=== PATIENT | female | born 1995 | race African-American/Black ===

== ENCOUNTER 2016-04-26 13:09 | Emergency (ER) | payer SELFPAY ==
[~2016-04-26] VITALS: Ht 160 cm; Wt 54.6 kg
[2016-04-26 13:13] VITALS: BP 114/76; PULSE 100; RESP 18; TEMP 98.7; O2SAT 99
[2016-04-26] MEDS ORDERED: MAGICPED SWISH-SPIT (13:31)
[2016-04-26] MEDS ORDERED: DICL75TA PO (13:31)
--- NOTE | 2016-04-26 13:36 | PD ---
HPI Chief Complaint: Oral / Dental Pain or Problem Time Seen by Provider: 13:31 Travel History International Travel<30 days: No Contact w/Intl Traveler<30days: No Traveled to known affect area: No History of Present Illness HPI Patient is a 20-year-old female presenting with chief complaint of dental pain. Present for 3 days. Denies any trauma or injury. She states that is a tooth on the bottom left. Has had problems with this tooth before. Pain is aching and throbbing does not radiate. She denies any masses or swelling. States occasion she has a bad taste in her mouth but denies any bleeding or chandan discharge. No neck masses or lymphadenopathy. No fevers. He's had a frontal headache as well she believes is related. Denies any vision changes, weakness, dizziness, nausea or vomiting. Over the 3 days she has used one ibuprofen 200 mg and some Tylenol and Orajel. No other attempts at palliation. Scheduled with a dentist but cannot get in until next week. Denies current . 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) Diminished Hearing: No Gastrointestinal Disorders: Yes (NAUSEA/VOMITING) Headaches: Yes Immunizations Current: Yes Migraines: Yes Tetanus Vaccination: > 5 Years Influenza Vaccination: No ?: Not LMP: 03-30-16 : 1 Para: 0 Miscarriage: 1 : 0 Past Surgical History Surgical History: No Previous Surgery Section: Yes (Breech position: 17 WEEKS PREMIE) Family History Family Hypercholesterolemia: Yes Social History Alcohol Use: Yes (rarely) Tobacco Use: No (never) Substance Use: No Allergies-Medications (Allergen,Severity, Reaction): Coded Allergies: No Known Allergies (Verified , 04/26/16) Reported Meds & Prescriptions Reported Meds & Active Scripts Active No Active Prescriptions or Reported Medications Review of Systems Except as stated in HPI: all other systems reviewed are Neg Physical Exam Narrative GENERAL: Well-developed and well-nourished adult female in no acute distress. SKIN: Warm and dry. Good turgor without tenting. HEAD: Normocephalic and atraumatic. EYES: PERRL bilaterally, 5mm. EOMI bilaterally. No injection or icterus present. No proptosis. Lids without edema or erythema. ENT: Tooth #19 has multiple fillings in it does appear to be some caries. Tooth is tender to percussion. No breakage. No discharge or bleeding. The gingiva is not erythematous, indurated or have any fluctuance. Tender to palpation of the gingiva on the buccal side. No buccal or sublingual masses. Buccal mucosa pink and moist. Oropharynx free of erythema, tonsillar hypertrophy , masses, swelling, asymmetry and exudates. Uvula midline and airway patent. NECK: Supple, no meningeal signs. No masses or induration palpated. Trachea midline, no JVD. No cervical or facial lymphadenopathy. CARDIOVASCULAR: Regular rate and rhythm without murmurs, rubs, clicks or gallops. RESPIRATORY: Clear to auscultation bilaterally with symmetrical rise and fall, no distress or use of accessory muscles. MUSCULOSKELETAL: No gait disturbances. Patient freely moving all four extremities spontaneously. Extremities without clubbing, cyanosis, or edema. No obvious deformities. NEUROLOGIC: CN II-XII grossly intact. Awake and alert. Motor grossly within normal limits. Normal speech. PSYCHIATRIC: Appropriate mood and affect; insight and judgment normal. Data Data Last Documented VS Vital Signs Date Time Temp Pulse Resp B/P Pulse Ox O2 Delivery O2 Flow Rate FiO2 04/26/16 13:20 16 04/26/16 13:13 98.7 100 114/76 99 MDM Medical Decision Making Medical Screen Exam Complete: Yes Emergency Medical Condition: Yes Differential Diagnosis Caries versus Periapical abscess versus cellulitis versus Tooth Fracture vs less likely Ludwigs Angina Narrative Course Patient is a 20-year-old female presenting with dental pain. By history and physical was is secondary to caries. No signs of infection. She is afebrile and nontoxic appearing. She also had a mild a frontal headache associated with it without "red flag symptoms. She has been on suboptimal anti-inflammatory therapy only taking one ibuprofen 200 mg over the last 3 days. Patient given prescription for diclofenac and Magic mouthwash and recommend follow-up with dentist prior to next week. I recommended local emergency dentists per handout.See discharge paperwork for further instructions. The plan was discussed with the patient who acknowledged their understanding and agreement. Reinforced the follow-up with primary care is critically important. Patient instructed on emergent conditions that should prompt return to ED. Diagnosis Primary Impression: Pain, dental Patient Instructions: Dental Caries (ED), General Instructions Departure Forms: Tests/Procedures, Work Release Enter return to work date: Apr 27, 2016 Additional Instructions: Take medication as directed Use salt water gargles, Orajel, or other OTC products for topical pain relief Apply ice packs hourly as needed to help with swelling and pain Schedule with dentist JANNY for definitive treatment Return to the ED for any acute worsening of symptoms Med/Other Pt SpecificInfo: Prescription(s) given Scripts Ftonkhcbzazklxv-Yjkiuhnkd-Zvz-Alum-Simeth Liq (Magic Mouthwash Pediatric/Adult Liq)60 Ml Susp5-10 Ml SWISH-SPIT ACHS PRN (SORE THROAT) #120 ML Please makes 40 mL each: 2% viscous lidocaine, liquid diphenhydramine and Maalox liquid Prov:Juliette Valenzuela MD 04/26/[address] 75 Mg Tabdr75 Mg PO BID #10 TAB Prov:Juliette Valenzuela MD 04/26/16 Disposition: 01 DISCHARGE HOME Condition: Stable Gómez Naranjo III Apr 26, 2016 13:36
== END 2016-04-26 13:56 | disposition home or self-care (01) ==
LOC: PHEFT 13:09
DX: K08.89 Other specified disorders of teeth and supporting structures (principal)
CPT/HCPCS: 99283

== ENCOUNTER 2016-05-15 15:40 | Emergency (ER) | payer MEDICAID ==
[~2016-05-15] VITALS: Ht 160 cm; Wt 52.0 kg
[~2016-05-15 15:40] MED LIST: DICL75TA PO; MAGICPED SWISH-SPIT
[2016-05-15 15:51] VITALS: BP 122/79; PULSE 97; RESP 16; TEMP 98.5; O2SAT 99
[2016-05-15] MEDS ORDERED: SODIUM CHLOR 0.9% 1000 ML INJ 1,000 ML IV ONE (16:07)
[2016-05-15] MEDS ORDERED: ONDANSETRON HCL 4 MG/2 ML VIAL IVP ONE (16:15)
[2016-05-15] MEDS ORDERED: SODIUM CHLORIDE 0.9% FLUSH 5 ML FLUSH IVF PRN (16:15)
[2016-05-15 16:39] VITALS: O2SAT 98
--- NOTE | 2016-05-15 16:41 | PD ---
HPI Chief Complaint: GI Complaint Time Seen by Provider: 16:07 Travel History International Travel<30 days: No Contact w/Intl Traveler<30days: No Traveled to known affect area: No History of Present Illness HPI 20-year-old female presents emergency department with complaint of nausea vomiting nursing to see. For the last week she has had nausea, vomiting. Associated lightheadedness, dizziness. Yesterday evening she had a near syncopal episode at work yesterday evening. Patient states that her last menstrual period was March 28, 2016. She is sexually active and is late for her menstrual period but has not taken any tests at home. Patient is unsure whether she could be . She has not had any abdominal pain, vaginal bleeding or abnormal vaginal discharge. Denies any history of heavy menstrual bleeding, anemia or arrhythmia and self or family. 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) Diminished Hearing: No Gastrointestinal Disorders: Yes (NAUSEA/VOMITING) Headaches: Yes Immunizations Current: Yes Migraines: Yes Tetanus Vaccination: Unknown Influenza Vaccination: No ?: Unknown LMP: LAST MONTH : 1 Para: 0 Miscarriage: 1 : 0 Past Surgical History Section: Yes (Breech position: 17 WEEKS PREMIE) Family History Family Hypercholesterolemia: Yes Social History Alcohol Use: No Tobacco Use: No (never) Substance Use: No Allergies-Medications (Allergen,Severity, Reaction): Coded Allergies: No Known Allergies (Verified , 05/15/16) Reported Meds & Prescriptions Reported Meds & Active Scripts Active Plus Iron 29-1 mg ( Vit-Iron Carbonyl) 1 Tab Tab 1 Tab PO DAILY Zofran Odt (Ondansetron Odt) 8 Mg Tab 8 Mg SL Q8H PRN Magic Mouthwash Pediatric/Adult Liq (Lidocaine/Diphenhydr/Alum/Mg/Simeth) 60 Ml Susp 5-10 Ml SWISH-SPIT ACHS PRN Please makes 40 mL each: 2% viscous lidocaine, liquid diphenhydramine and Maalox liquid Diclofenac Sodium DR (Diclofenac Sodium) 75 Mg Tabdr 75 Mg PO BID Review of Systems Except as stated in HPI: all other systems reviewed are Neg Physical Exam Narrative GENERAL: Well-appearing female in no acute distress SKIN: Warm and dry. HEAD: Normocephalic. EYES: No scleral icterus. No injection or drainage. ENT: Mucous membranes pink and moist. NECK: Supple CARDIOVASCULAR: Regular rate and rhythm. No murmur appreciated. RESPIRATORY: No accessory muscle use. Clear to auscultation. Breath sounds equal bilaterally. GASTROINTESTINAL: Abdomen soft, non-tender, nondistended. MUSCULOSKELETAL: Normal gait NEUROLOGICAL: Awake and alert. Normal speech. PSYCHIATRIC: Appropriate mood and affect; insight and judgment normal. Data Data Last Documented VS Vital Signs Date Time Temp Pulse Resp B/P Pulse Ox O2 Delivery O2 Flow Rate FiO2 05/15/16 16:39 98 05/15/16 15:51 98.5 97 16 122/79 Orders Electrocardiogram (05/15/16 16:07) Basic Metabolic Panel (Bmp) (05/15/16 16:07) Ed Urine Pregnancytest Poc (05/15/16 16:07) Complete Blood Count With Diff (05/15/16 16:07) Magnesium (Mg) (05/15/16 16:07) Ecg Monitoring (05/15/16 16:07) Iv Access Insert/Monitor (05/15/16 16:07) Oximetry (05/15/16 16:07) Ondansetron Inj (Zofran Inj) (05/15/16 16:15) Sodium Chloride 0.9% Flush (Ns Flush) (05/15/16 16:15) Sodium Chlor 0.9% 1000 Ml Inj (Ns 1000 M (05/15/16 16:07) Labs Laboratory Tests Test 05/15/16 16:26 White Blood Count 5.9 TH/MM3 Red Blood Count 4.42 MIL/MM3 Hemoglobin 11.8 GM/DL Hematocrit 36.0 % Mean Corpuscular Volume 81.5 FL Mean Corpuscular Hemoglobin 26.7 PG Mean Corpuscular Hemoglobin 32.8 % Concent Red Cell Distribution Width 13.8 % Platelet Count 315 TH/MM3 Mean Platelet Volume 8.5 FL Neutrophils (%) (Auto) 60.8 % Lymphocytes (%) (Auto) 26.2 % Monocytes (%) (Auto) 7.7 % Eosinophils (%) (Auto) 1.3 % Basophils (%) (Auto) 4.0 % Neutrophils # (Auto) 3.6 TH/MM3 Lymphocytes # (Auto) 1.5 TH/MM3 Monocytes # (Auto) 0.5 TH/MM3 Eosinophils # (Auto) 0.1 TH/MM3 Basophils # (Auto) 0.2 TH/MM3 CBC Comment DIFF FINAL Differential Comment Sodium Level 139 MEQ/L Potassium Level 3.6 MEQ/L Chloride Level 105 MEQ/L Carbon Dioxide Level 23.7 MEQ/L Anion Gap 10 MEQ/L Blood Urea Nitrogen 6 MG/DL Creatinine 0.52 MG/DL Estimat Glomerular Filtration 184 ML/MIN Rate Random Glucose 72 MG/DL Calcium Level 9.2 MG/DL Magnesium Level 1.9 MG/DL [facility] [place] Medical Decision Making Medical Screen Exam Complete: Yes Emergency Medical Condition: Yes Medical Record Reviewed: Yes Differential Diagnosis 20-year-old female here with complaint of one week of nausea, vomiting, lightheadedness and near syncopal episode. She is 2+ weeks overdue for her menses. Highly suspicious for . Differential includes symptomatic anemia, arrhythmia, electrolyte abnormality, and less likely ectopic given the benign abdominal examination lack of abdominal pain or vaginal bleeding. Narrative Course Patient placed on monitor, IV established and blood obtained. Twelve-lead EKG shows sinus rhythm without notable ST or T-wave abnormalities and normal intervals. Patient given 1 L normal saline bolus, 4 monos Zofran. Urine test was positive. Based on LMP of 03/28/16 patient is 6 weeks 6 days gestational age today. CBC, BMP, magnesium were obtained and unremarkable. Patient was reassured, given Zofran for home and encouraged to follow-up with OB /SENIOR FINANCIAL ACCOUNTANT to establish care for this . Diagnosis Primary Impression: Nausea and vomiting during Referrals: Senior Science Consultant call for appointment Additional Instructions: Zofran as needed for nausea. vitamins as prescribed. Follow-up with [facility] to establish care for this . Med/Other Pt SpecificInfo: Prescription(s) given Scripts Vit-Iron Carbonyl ( Plus Iron 29-1 mg)1 Tab Tab1 Tab PO DAILY #30 TAB Ref 0 Prov:Roxanne Connor MD 05/15/16 Ondansetron Odt (Zofran Odt)8 Mg Tab8 Mg SL Q8H PRN (NAUSEA OR VOMITING) #10 TAB Ref 0 Prov:Roxanne Connor MD 05/15/16 Disposition: 01 DISCHARGE HOME Condition: Stable Roxanne Connor MD May 15, 2016 16:41
[2016-05-15] MEDS ORDERED: ZOFR8TAB4 SL (16:43)
[2016-05-15] MEDS ORDERED: PREN29TA PO (16:43)
[2016-05-15 16:44] LABS: POTASSIUM 3.6 MEQ/L (3.5-5.1)
[2016-05-15 16:47] LABS: BICARBONATE 23.7 MEQ/L (21.0-32.0); MAGNESIUM 1.9 MG/DL (1.5-2.5)
[2016-05-15 17:03] LABS: AUTOMATED NEUTROPHIL # 3.6 TH/MM3 (1.8-7.7); BASOPHIL # 0.2 TH/MM3 (0-0.2); EOSINOPHIL # 0.1 TH/MM3 (0-0.4); EOSINOPHIL % 1.3 % (0.0-4.0); HEMO FLAGS DIFF FINAL; LYMPH % 26.2 % (9.0-44.0); LYMPHOCYTE # 1.5 TH/MM3 (1.0-4.8); MEAN CELL VOLUME 81.5 FL (80.0-100.0); MEAN CORPUSCULAR HEMOGLOBIN 26.7 PG (27.0-34.0); MEAN CORPUSCULAR HGB CONC 32.8 % (32.0-36.0); MONO % 7.7 % (0.0-8.0); NEUT % 60.8 % (16.0-70.0); PLATELET COUNT 315 TH/MM3 (150-450); RED BLOOD COUNT 4.42 MIL/MM3 (4.00-5.30); RED CELL DISTRIBUTION WIDTH 13.8 % (11.6-17.2); WHITE BLOOD COUNT 5.9 TH/MM3 (4.0-11.0)
--- NOTE | 2016-05-16 17:06 | EKG ---
Date Performed: 05/15/2016 Time Performed: 16:15:22 PTAGE: 20 years EKG: Sinus rhythm rSr'(V1) - probable normal variant Since previous tracing, no significant change noted Normal ECG PREVIOUS TRACING : 01/13/2012 23.52 DOCTOR: Orlando rBizuela Interpretating Date/Time 05/16/2016 17:05:17
== END 2016-05-15 17:33 | disposition home or self-care (01) ==
LOC: PHEFT 15:40
DX: O21.0 Mild hyperemesis gravidarum (principal); Z3A.01 Less than 8 weeks gestation of pregnancy
CPT/HCPCS: 80048; 83735; 84703; 85025; 93005; 96361; 96374; 99284; J2405; J7030

== ENCOUNTER 2016-05-18 16:00 | Emergency (ER) | payer MEDICAID ==
[~2016-05-18] VITALS: Ht 160 cm; Wt 51.8 kg
[~2016-05-18 16:00] MED LIST changes: +PREN29TA PO; +ZOFR8TAB4 SL
[2016-05-18 16:29] VITALS: BP 113/75; PULSE 112; RESP 16; TEMP 98.8; O2SAT 99
[2016-05-18] MEDS ORDERED: ONDANSETRON HCL 4 MG/2 ML VIAL IV PUSH ONE ×2 (18:30→20:30)
[2016-05-18] MEDS ORDERED: SODIUM CHLOR 0.9% 1000 ML INJ 1,000 ML IV ONE ×2 (18:30)
[2016-05-18] MEDS ORDERED: PYRI50TA PO (18:33)
[2016-05-18] MEDS ORDERED: DOXY10TA PO (18:33)
[2016-05-18 18:46] LABS: AUTOMATED NEUTROPHIL # 5.2 TH/MM3 (1.8-7.7); BASOPHIL % 0.6 % (0.0-2.0); EOSINOPHIL % 0.4 % (0.0-4.0); HEMATOCRIT 39.9 % (35.0-46.0); HEMO FLAGS DIFF FINAL; LYMPH % 20.8 % (9.0-44.0); LYMPHOCYTE # 1.5 TH/MM3 (1.0-4.8); MEAN CELL VOLUME 81.4 FL (80.0-100.0); MEAN CORPUSCULAR HEMOGLOBIN 26.7 PG (27.0-34.0); MEAN CORPUSCULAR HGB CONC 32.8 % (32.0-36.0); MONO % 4.9 % (0.0-8.0); NEUT % 73.3 % (16.0-70.0); PLATELET COUNT 356 TH/MM3 (150-450); RED CELL DISTRIBUTION WIDTH 13.7 % (11.6-17.2)
[2016-05-18 18:53] LABS: POTASSIUM 3.4 MEQ/L (3.5-5.1)
[2016-05-18 18:56] LABS: BICARBONATE 26.2 MEQ/L (21.0-32.0)
[2016-05-18 19:16] LABS: BLOOD, URINE NEG (NEG); GLUCOSE,URINE NEG (NEG); KETONE, URINE 15 mg/dL (NEG); NITRITE,URINE NEG (NEG); PH, URINE 6.5 (5.0-8.5)
[2016-05-18 19:24] LABS: URINE COLOR YELLOW (YELLW/STRAW)
[2016-05-18 19:25] LABS: BACTERIA, URINE FEW /hpf; COMMENT (UR) CULTURE INDICATED; CULTURE IF INDICATED CULTURE INDICATED; RBC, URINE 0-2 /hpf (0-3); SQUAMOUS EPITHELIAL CELL URINE > 8 /hpf (0-5)
[2016-05-18] MEDS ORDERED: cefTRIAXone INJ 1,000 MG in SODIUM CHLORIDE 0.9% INJ 100 ML IV ONE (19:30)
[2016-05-18] MEDS ORDERED: MACR100C2 PO (20:13)
--- NOTE | 2016-05-18 20:17 | PD ---
HPI Chief Complaint: Related Problem Time Seen by Provider: 18:26 Travel History International Travel<30 days: No Contact w/Intl Traveler<30days: No Traveled to known affect area: No History of Present Illness HPI This 20-year-old female is complaining of vomiting. She recently found out she is she is having a lot of vomiting. She has a prescription for Zofran which is not helping. She is 2 para 1. She is not having abdominal pain and bleeding 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) Diminished Hearing: No Gastrointestinal Disorders: Yes (NAUSEA/VOMITING) Headaches: Yes Immunizations Current: Yes Migraines: Yes ?: : 1 Para: 0 Miscarriage: 1 : 0 Past Surgical History Section: Yes (Breech position: 17 WEEKS PREMIE) Family History Family Hypercholesterolemia: Yes Social History Alcohol Use: No Tobacco Use: No (never) Substance Use: No Allergies-Medications (Allergen,Severity, Reaction): Coded Allergies: No Known Allergies (Verified , 05/18/16) Reported Meds & Prescriptions Reported Meds & Active Scripts Active Diclegis (Doxylamine-Pyridoxine) 10-10 Mg Tab 2 Tab PO HS Pyridoxine (Pyridoxine HCl) 50 Mg Tab 50 Mg PO DAILY Plus Iron 29-1 mg ( Vit-Iron Carbonyl) 1 Tab Tab 1 Tab PO DAILY Zofran Odt (Ondansetron Odt) 8 Mg Tab 8 Mg SL Q8H PRN Review of Systems General / Constitutional: No: Fever, Chills Eyes: No: Diploplia, Blurred Vision HENT: No: Headaches, Vertigo Cardiovascular: No: Chest Pain or Discomfort Respiratory: No: Cough, Shortness of Breath Gastrointestinal: Positive: Nausea, Vomiting, No: Abdominal Pain Genitourinary: No: Pelvic Pain Musculoskeletal: No: Myalgias Skin: No Rash, No Itching Neurologic: Positive: Weakness Psychiatric: No: Depression Hematologic/Lymphatic: No: Easy Bruising Physical Exam Narrative GENERAL: Well-developed female SKIN: Warm and dry. HEAD: Atraumatic. Normocephalic. EYES: Pupils equal and round. No scleral icterus. No injection or drainage. ENT: No nasal bleeding or discharge. Mucous membranes pink and moist. NECK: Trachea midline. No JVD. CARDIOVASCULAR: Regular rate and rhythm. No murmur appreciated. RESPIRATORY: No accessory muscle use. Clear to auscultation. Breath sounds equal bilaterally. GASTROINTESTINAL: Abdomen soft, non-tender, nondistended. Hepatic and splenic margins not palpable. MUSCULOSKELETAL: No obvious deformities. No clubbing. No cyanosis. No edema. NEUROLOGICAL: Awake and alert. No obvious cranial nerve deficits. Motor grossly within normal limits. Normal speech. PSYCHIATRIC: Appropriate mood and affect; insight and judgment normal. Data Data Last Documented VS Vital Signs Date Time Temp Pulse Resp B/P Pulse Ox O2 Delivery O2 Flow Rate FiO2 05/18/16 16:29 98.8 112 16 113/75 99 Orders Complete Blood Count With Diff (05/18/16 18:26) Basic Metabolic Panel (Bmp) (05/18/16 18:26) Urinalysis - C+S If Indicated (05/18/16 18:26) Sodium Chlor 0.9% 1000 Ml Inj (Ns 1000 M (05/18/16 18:30) Sodium Chlor 0.9% 1000 Ml Inj (Ns 1000 M (05/18/16 18:30) Ondansetron Inj (Zofran Inj) (05/18/16 18:30) Urine Culture (05/18/16 19:00) Ceftriaxone Inj (Rocephin Inj) (05/18/16 19:30) Labs Laboratory Tests Test 05/18/16 05/18/16 18:38 19:00 White Blood Count 7.0 TH/MM3 Red Blood Count 4.90 MIL/MM3 Hemoglobin 13.1 GM/DL Hematocrit 39.9 % Mean Corpuscular Volume 81.4 FL Mean Corpuscular Hemoglobin 26.7 PG Mean Corpuscular Hemoglobin 32.8 % Concent Red Cell Distribution Width 13.7 % Platelet Count 356 TH/MM3 Mean Platelet Volume 7.8 FL Neutrophils (%) (Auto) 73.3 % Lymphocytes (%) (Auto) 20.8 % Monocytes (%) (Auto) 4.9 % Eosinophils (%) (Auto) 0.4 % Basophils (%) (Auto) 0.6 % Neutrophils # (Auto) 5.2 TH/MM3 Lymphocytes # (Auto) 1.5 TH/MM3 Monocytes # (Auto) 0.3 TH/MM3 Eosinophils # (Auto) 0.0 TH/MM3 Basophils # (Auto) 0.0 TH/MM3 CBC Comment DIFF FINAL Differential Comment Sodium Level 138 MEQ/L Potassium Level 3.4 MEQ/L Chloride Level 101 MEQ/L Carbon Dioxide Level 26.2 MEQ/L Anion Gap 11 MEQ/L Blood Urea Nitrogen 5 MG/DL Creatinine 0.60 MG/DL Estimat Glomerular Filtration 156 ML/MIN Rate Random Glucose 83 MG/DL Calcium Level 9.5 MG/DL Urine Color YELLOW Urine Turbidity CLOUDY Urine pH 6.5 Urine Specific [place] 1.023 Urine Protein TRACE mg/dL Urine Glucose (UA) NEG mg/dL Urine Ketones 15 mg/dL Urine Occult Blood NEG Urine Nitrite NEG Urine Bilirubin NEG Urine Leukocyte Esterase SMALL Urine RBC 0-2 /hpf Urine WBC 9-14 /hpf Urine Squamous Epithelial > 8 /hpf Cells Urine Amorphous Sediment MOD Urine Bacteria FEW /hpf Microscopic Urinalysis Comment CULTURE INDICATED MDM Medical Decision Making Medical Screen Exam Complete: Yes Emergency Medical Condition: Yes Medical Record Reviewed: Yes Differential Diagnosis Differential includes nausea or vomiting of , hyperemesis, UTI Narrative Course Urine does show equivocal infection. In view of the vomiting have ordered Rocephin. She is feeling better after Zofran. She is given 2 L. She will be released with prescription for Macrobid and is the Zofran does not appear to be working she'll be given a trial of diclegis Diagnosis Primary Impression: Nausea and vomiting during Additional Impression: Urinary tract infection affecting care of mother in first trimester, antepartum Departure Forms: Tests/Procedures, Work Release Enter return to work date: May 23, 2016 Scripts Nitrofurantoin Monohydrate Macrocrystals (Macrobid)100 Mg [id number] Mg PO BID 7 Days Ref 0 Prov:Juan Howard MD 05/18/16 Doxylamine-Pyridoxine (Diclegis)10-10 Mg Tab2 Tab PO HS #20 Prov:Juan Howard MD 05/18/16 Disposition: 01 DISCHARGE HOME Condition: Stable Juan Howard MD May 18, 2016 20:17
[2016-05-18 20:48] VITALS: BP 120/62
== END 2016-05-18 20:55 | disposition home or self-care (01) ==
LOC: PHED 16:00 → PHEFT 20:55
DX: O23.41 Unspecified infection of urinary tract in pregnancy, first trimester (principal); R11.2 Nausea with vomiting, unspecified
CPT/HCPCS: 80048; 81001; 85025; 87086; 96361; 96365; 96375; 96376; 99284; J0696; J2405; J7030

== ENCOUNTER 2016-08-04 12:09 | Emergency (ER) | payer OTHER ==
[~2016-08-04] VITALS: Ht 160 cm; Wt 60.0 kg
[~2016-08-04 12:09] MED LIST changes: -DICL75TA PO; +DOXY10TA PO; +MACR100C2 PO; -MAGICPED SWISH-SPIT
[2016-08-04 12:44] VITALS: BP 129/68; PULSE 97; RESP 17; TEMP 98.2; O2SAT 100
[2016-08-04 13:05] VITALS: BP 120/73; PULSE 82; RESP 20; O2SAT 100
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
[2016-08-04] MEDS ORDERED: IBUP-232 PO (14:41)
[2016-08-04 14:50] VITALS: BP 120/68; TEMP 97.8
== END 2016-08-04 14:50 | disposition home or self-care (01) ==
LOC: NEPD 12:09
DX: S16.1XXA Strain of muscle, fascia and tendon at neck level, initial encounter (principal); V43.62XA Car passenger injured in collision with other type car in traffic accident, initial encounter; Y93.89 Activity, other specified; Y92.410 Unspecified street and highway as the place of occurrence of the external cause; Y99.8 Other external cause status
CPT/HCPCS: 72072; 72125

== ENCOUNTER 2016-10-18 10:51 | Emergency (ER) | payer SELFPAY ==
[~2016-10-18] VITALS: Ht 160 cm; Wt 61.5 kg
[~2016-10-18 10:51] MED LIST changes: -DOXY10TA PO; +IBUP-232 PO; -MACR100C2 PO; -PREN29TA PO; -ZOFR8TAB4 SL
[2016-10-18 10:52] VITALS: BP 125/69; PULSE 86; RESP 20; TEMP 98.4; O2SAT 98
[2016-10-18] MEDS ORDERED: KETOROLAC TROMETHAMINE 60 MG/2 ML (IM) VIAL IM ONE (12:30)
[2016-10-18] MEDS ORDERED: BUTA1CAP PO (12:41)
--- NOTE | 2016-10-18 12:42 | PD ---
HPI Chief Complaint: Headache Time Seen by Provider: 12:15 Travel History International Travel<30 days: No Contact w/Intl Traveler<30days: No Traveled to known affect area: No History of Present Illness HPI 20-year-old female with chief complaint of headache 5 days. Patient reports she has history of migraines. She reports this headache is similar to previous. She denies head trauma, fever, neck pain. Gradual onset. Located in the frontal region. Associated with mild nausea and photophobia. Patient reports Fioricet that has helped in the past. She reports the pain as throbbing , nonradiating, 4 out of 10 severity. No aggravating or alleviating factors. PFSH Past Medical History Depression: Yes (S/P LOSING CHILD) Diminished Hearing: No Gastrointestinal Disorders: Yes (NAUSEA/VOMITING) Headaches: Yes Immunizations Current: Yes Migraines: Yes Tetanus Vaccination: < 5 Years Influenza Vaccination: No ?: Unknown LMP: 10/10/16 : 1 Para: 0 Miscarriage: 1 : 0 Past Surgical History Section: Yes (Breech position: 17 WEEKS PREMIE) Family History Family Hypercholesterolemia: Yes Social History Alcohol Use: No Tobacco Use: No Substance Use: No Allergies-Medications (Allergen,Severity, Reaction): Coded Allergies: No Known Allergies (Verified , 08/04/16) Reported Meds & Prescriptions Reported Meds & Active Scripts Active Fioricet (Kgnqyuaobl-Mrdhatdmjxwon-Rgsifeun) 50-300-40 Mg Cap 1 Cap PO Q4H PRN Ibuprofen 600 Mg Tab 600 Mg PO Q6H PRN Review of Systems Except as stated in HPI: all other systems reviewed are Neg General / Constitutional: No: Fever Eyes: No: Visual changes HENT: Positive: Headaches Cardiovascular: No: Chest Pain or Discomfort Respiratory: No: Shortness of Breath Physical Exam Narrative GENERAL: Well-nourished, well-developed patient. SKIN: Focused skin assessment warm/dry. HEAD: Normocephalic. EYES: No scleral icterus. No injection or drainage. EOMs intact. NECK: Supple, trachea midline. No JVD or lymphadenopathy. No meningismus CARDIOVASCULAR: Regular rate and rhythm without murmurs, gallops, or rubs. RESPIRATORY: Breath sounds equal bilaterally. No accessory muscle use. GASTROINTESTINAL: Abdomen soft, non-tender, nondistended. MUSCULOSKELETAL: No cyanosis, or edema. BACK: Nontender without obvious deformity. No CVA tenderness. Data Data Last Documented VS Vital Signs Date Time Temp Pulse Resp B/P Pulse Ox O2 Delivery O2 Flow Rate FiO2 10/18/16 10:52 98.4 86 20 125/69 98 Room Air Orders Ketorolac Inj (Toradol Inj) (10/18/16 12:30) MDM Medical Decision Making Medical Screen Exam Complete: Yes Emergency Medical Condition: Yes Differential Diagnosis Migraine, tension headache, cluster headache Narrative Course 20-year-old female with chief complaint of headache 5 days. Patient reports she has history of migraines. She reports this headache is similar to previous. She denies fever, neck pain. Gradual onset. Associated with mild nausea and photophobia. Patient reports Fioricet that has helped in the past. Physical exam is reassuring. Patient is resting comfortably on stretcher looking at her phone. Patient was given a shot of Toradol emergency department. She had symptom improvement. She will be discharged home with instructions to take Motrin and fears that as needed. Diagnosis Primary Impression: Migraine Qualified Code: G43.909 - Migraine without status migrainosus, not intractable , unspecified migraine type Referrals: Primary Care Physician Departure Forms: Tests/Procedures, Work Release Enter return to work date: Oct 19, 2016 Additional Instructions: Take zftv-skb-fzdxvgo Motrin [id number] milligrams every 6-8 hours as needed for pain. Takes Urised as needed for pain. Follow-up with her primary care doctor. Return to the emergency department if he developed new or worsening symptoms. Scripts Ozyvdwvsdt-Ubkqrhfkczhwf-Bhpbfivf (Fioricet)50-300-40 Mg Cap1 Cap PO Q4H PRN ( HEADACHE) #12 CAP Ref 0 Prov:Loretta Dunaway 10/18/16 Disposition: 01 DISCHARGE HOME Condition: Stable Loretta Dunaway Oct 18, 2016 12:42
== END 2016-10-18 13:05 | disposition home or self-care (01) ==
LOC: NEPK 10:51
DX: G43.909 Migraine, unspecified, not intractable, without status migrainosus (principal); F32.9 Major depressive disorder, single episode, unspecified; Z79.899 Other long term (current) drug therapy
CPT/HCPCS: 96372; 99284; J1885

== ENCOUNTER 2016-10-19 13:31 | Emergency (ER) | payer SELFPAY ==
[~2016-10-19] VITALS: Ht 160 cm; Wt 60.0 kg
[~2016-10-19 13:31] MED LIST changes: +BUTA1CAP PO
[2016-10-19 13:33] VITALS: BP 129/86; PULSE 77; RESP 16; TEMP 98.6; O2SAT 98
--- NOTE | 2016-10-19 13:42 | PD ---
Physical Exam Time Seen by Provider: 13:41 Narrative 20 y/o female here with h/a for 6 days. Seen yesterday. Vital signs reviewed. Seen at triage desk. Awaiting bed placement. Data Data Last Documented VS Vital Signs Date Time Temp Pulse Resp B/P Pulse Ox O2 Delivery O2 Flow Rate FiO2 10/19/16 13:33 98.6 77 16 129/86 98 Room Air [facility] Medical Record Reviewed: Yes Supervised Visit with ALMAZ: Saqib Matute Oct 19, 2016 13:42
== END 2016-10-19 14:21 | disposition left against medical advice (07) ==
LOC: NED 13:31
DX: R51 Headache (principal); Z53.21 Procedure and treatment not carried out due to patient leaving prior to being seen by health care provider
CPT/HCPCS: 99281

== ENCOUNTER 2016-11-30 09:22 | Emergency (ER) | payer MEDICAID ==
[~2016-11-30] VITALS: Ht 160 cm; Wt 59.0 kg
[2016-11-30 09:27] VITALS: BP 131/72; PULSE 130; RESP 18; TEMP 98.6; O2SAT 98
[2016-11-30] MEDS ORDERED: ONDANSETRON HCL 4 MG/2 ML VIAL IVP ONE (09:45)
[2016-11-30] MEDS ORDERED: SODIUM CHLOR 0.9% 1000 ML INJ 1,000 ML IV ONE (09:45)
[2016-11-30] MEDS ORDERED: SODIUM CHLOR 0.9% 1000 ML INJ 1,000 ML IV SCH (09:45)
--- NOTE | 2016-11-30 10:06 | PD ---
HPI . Vomiting Chief Complaint: Related Problem Time Seen by Provider: 09:35 Travel History International Travel<30 days: No Contact w/Intl Traveler<30days: No Traveled to known affect area: No History of Present Illness HPI This patient presents with chief complaint of morning sickness. Onset was about 2 weeks. She states that she has had very little to eat or drink in the last 2 days. She reports a 10 pound weight loss. She has not yet seen a doctor and has not taken an anti-medic. Patient states that her symptoms do seem to be exacerbated by certain types of food. No relieving factor. Symptoms have been severe. 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) Diminished Hearing: No Gastrointestinal Disorders: Yes (NAUSEA/VOMITING) Headaches: Yes Immunizations Current: Yes Migraines: Yes Tetanus Vaccination: < 5 Years Influenza Vaccination: No ?: LMP: 10/09/16 : 3 Para: 0 Miscarriage: 1 : 1 Past Surgical History Surgical History: No Previous Surgery Section: Yes (Breech position: 17 WEEKS PREMIE) Family History Family Hypercholesterolemia: Yes Social History Alcohol Use: No Tobacco Use: No Substance Use: No Allergies-Medications (Allergen,Severity, Reaction): Coded Allergies: No Known Allergies (Verified , 11/30/16) Reported Meds & Prescriptions Reported Meds & Active Scripts Active No Active Prescriptions or Reported Medications Review of Systems Except as stated in HPI: all other systems reviewed are Neg General / Constitutional: No: Fever, Chills Gastrointestinal: Positive: Nausea, Vomiting, No: Diarrhea, Abdominal Pain Genitourinary: No: Urgency, Frequency, Dysuria Physical Exam Narrative GENERAL: Awake and alert and in no acute distress. SKIN: warm/dry. HEAD: Normocephalic. EYES: Pupils equal and round. No scleral icterus. No injection or drainage. ENT: No nasal bleeding or discharge. Mucous membranes pink and moist. NECK: Trachea midline. Full range of motion without pain.. CARDIOVASCULAR: Regular rate and rhythm. RESPIRATORY: No accessory muscle use. Clear to auscultation. Breath sounds equal bilaterally. GASTROINTESTINAL: Abdomen soft. Nontender. Bowel sounds present. Nondistended. MUSCULOSKELETAL: No obvious deformities. NEUROLOGICAL: Awake and alert. No obvious cranial nerve deficits. Motor grossly within normal limits. Normal speech. PSYCHIATRIC: Appropriate mood and affect; insight and judgment normal. Data Data Last Documented VS Vital Signs Date Time Temp Pulse Resp B/P (MAP) Pulse Ox O2 Delivery O2 Flow Rate FiO2 11/30/16 10:10 97 16 11/30/16 09:27 98.6 98 Room Air Orders Orders Iv Access Insert/Monitor (11/30/16 09:35) Ondansetron Inj (Zofran Inj) (11/30/16 09:45) Sodium Chlor 0.9% 1000 Ml Inj (Ns 1000 M (11/30/16 09:45) Sodium Chloride 0.9% Flush (Ns Flush) (11/30/16 09:45) Sodium Chlor 0.9% 1000 Ml Inj (Ns 1000 M (11/30/16 09:45) Urinalysis - C+S If Indicated (11/30/16 10:36) Urine Culture (11/30/16 11:00) Labs Laboratory Tests Test 11/30/16 11:00 Urine Collection Type CLEAN CATCH Urine Color YELLOW Urine Turbidity CLEAR Urine pH 7.5 Urine Specific [place] 1.022 Urine Protein NEG mg/dL Urine Glucose (UA) NEG mg/dL Urine Ketones 40 mg/dL Urine Occult Blood NEG Urine Nitrite NEG Urine Bilirubin NEG Urine Leukocyte Esterase SMALL Urine WBC 15-19 /hpf Urine WBC Clumps RARE Urine Squamous Epithelial Cells 0-3 /hpf Urine Bacteria RARE /hpf Urine Mucus RARE /lpf Microscopic Urinalysis Comment CULTURE INDICATED MDM Medical Decision Making Medical Screen Exam Complete: Yes Emergency Medical Condition: Yes Differential Diagnosis Differential diagnosis includes but is not limited to viral gastritis, food poisoning, pancreatitis, pneumonia, hepatitis, acute coronary syndrome, Narrative Course This patient presents with a 2 week history of vomiting related to early . She is tachycardic. She has had a 10 pound weight loss. I have ordered 2 L of fluid and IV Zofran. I will then reassess the situation. Laboratory Tests Test 11/30/16 11:00 Urine Collection Type CLEAN CATCH Urine Color YELLOW Urine Turbidity CLEAR Urine pH 7.5 Urine Specific [place] 1.022 Urine Protein NEG mg/dL Urine Glucose (UA) NEG mg/dL Urine Ketones 40 mg/dL Urine Occult Blood NEG Urine Nitrite NEG Urine Bilirubin NEG Urine Leukocyte Esterase SMALL Urine WBC 15-19 /hpf Urine WBC Clumps RARE Urine Squamous Epithelial Cells 0-3 /hpf Urine Bacteria RARE /hpf Urine Mucus RARE /lpf Microscopic Urinalysis Comment CULTURE INDICATED The patient has had no further emesis here. Her heart rate has come down. Diagnosis Primary Impression: Hyperemesis gravidarum Additional Impression: Urinary tract infection affecting care of mother in first trimester, antepartum Patient Instructions: General Instructions, Hyperemesis Gravidarum (DC), Urinary Tract Infection in (DC) Med/Other Pt SpecificInfo: Prescription(s) given Scripts Nitrofurantoin Monohydrate Macrocrystals (Macrobid) 100 Mg Cap 100 MG PO BID for Infection for 5 Days, CAP 0 Refills Prov: Daniella Kumar MD 11/30/16 Ondansetron (Zofran) 4 Mg Tab 4 MG PO Q6HR Y for NAUSEA OR VOMITING, #30 TAB 0 Refills Prov: Daniella Kumar MD 11/30/16 Disposition: 01 DISCHARGE HOME Condition: Stable Daniella Kumar MD Nov 30, 2016 10:06
[2016-11-30] MEDS: SODIUM CHLORIDE 0.9% FLUSH 10 ML FLUSH IVF PRN ×2 (10:07→10:53)
[2016-11-30 10:10] VITALS: PULSE 97; RESP 16
[2016-11-30 11:09] LABS: BLOOD, URINE NEG (NEG); GLUCOSE,URINE NEG (NEG); KETONE, URINE 40 mg/dL (NEG); NITRITE,URINE NEG (NEG); PH, URINE 7.5 (5.0-8.5)
[2016-11-30 11:22] LABS: METHOD OF COLLECTION CLEAN CATCH; MUCUS URINE RARE /lpf (OCC); URINE COLOR YELLOW (YELLW/STRAW); WBC, URINE 15-19 /hpf (0-5)
[2016-11-30 11:23] LABS: BACTERIA, URINE RARE /hpf; COMMENT (UR) CULTURE INDICATED; CULTURE IF INDICATED CULTURE INDICATED; SQUAMOUS EPITHELIAL CELL URINE 0-3 /hpf (0-5)
[2016-11-30] MEDS ORDERED: ZOFR4TAB PO (11:36)
[2016-11-30] MEDS ORDERED: MACR100C2 PO (11:36)
[2016-11-30 11:41] VITALS: BP 136/64; PULSE 90; RESP 16; O2SAT 100
[2016-11-30 12:07] VITALS: BP 100/58
[2017-01-02] MEDS ORDERED: REGL10TA5 PO (11:05)
[2017-01-02] MEDS ORDERED: PREN1TAB PO (11:05)
[2017-01-02] MEDS ORDERED: METR0.7512 VAGINAL (11:12)
[2017-01-11] MEDS ORDERED: TERC0.4C2 VAGINAL (12:53)
== END 2016-11-30 12:10 | disposition home or self-care (01) ==
LOC: PHED 09:22
DX: O21.0 Mild hyperemesis gravidarum (principal); O23.41 Unspecified infection of urinary tract in pregnancy, first trimester; R00.0 Tachycardia, unspecified; R63.4 Abnormal weight loss
CPT/HCPCS: 81001; 87086; 96361; 96374; 99284; J2405; J7030

== ENCOUNTER 2016-12-07 10:35 | Emergency (ER) | payer MEDICAID ==
[~2016-12-07] VITALS: Ht 160 cm; Wt 57.6 kg
[~2016-12-07 10:35] MED LIST changes: -BUTA1CAP PO; -IBUP-232 PO; +MACR100C2 PO; +ZOFR4TAB PO
[2016-12-07 10:38] VITALS: BP 120/72; PULSE 94; RESP 15; TEMP 98.9; O2SAT 100
[2016-12-07] MEDS ORDERED: SODIUM CHLOR 0.9% 1000 ML INJ 1,000 ML IV SCH (10:56)
[2016-12-07] MEDS ORDERED: ONDANSETRON HCL 4 MG/2 ML VIAL IV ONE (11:00)
[2016-12-07] MEDS ORDERED: METOCLOPRAMIDE HCL 10 MG/2 ML VIAL IV PUSH ONE (11:00)
[2016-12-07] MEDS ORDERED: SODIUM CHLOR 0.9% 1000 ML INJ 1,000 ML IV ONE (11:00)
[2016-12-07] MEDS ORDERED: SODIUM CHLORIDE 0.9% FLUSH 10 ML FLUSH IV FLUSH PRN (11:00)
--- NOTE | 2016-12-07 11:29 | PD ---
HPI Chief Complaint: GI Complaint Time Seen by Provider: 10:49 Travel History International Travel<30 days: No Contact w/Intl Traveler<30days: No Traveled to known affect area: No History of Present Illness HPI This is a 20-year-old female who presents to the emergency department in early with nausea and severe vomiting. She says she's lost 10 pounds since the beginning of . She's been vomiting every day, constant, associated with generalized weakness and fatigue. She had problems with hyperemesis in her last . Ultimately she lost her . She had an elective in May. She is also reporting that she's had constant milk from her nipples since then. She came into the emergency department several days ago and received Zofran. She's been taking but it has not been helping. She's not seen her auto claim representative yet. 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) Cardiovascular Problems: No Diminished Hearing: No Gastrointestinal Disorders: Yes (NAUSEA/VOMITING) Headaches: Yes Immunizations Current: Yes Migraines: Yes Tetanus Vaccination: > 5 Years Influenza Vaccination: No ?: LMP: 10/09/16 : 3 Para: 0 Miscarriage: 1 : 1 Past Surgical History Section: Yes (Breech position: 17 WEEKS PREMIE) Family History Family Hypercholesterolemia: Yes Social History Alcohol Use: No Tobacco Use: No Substance Use: No Allergies-Medications (Allergen,Severity, Reaction): Coded Allergies: No Known Allergies (Verified , 12/07/16) Reported Meds & Prescriptions Reported Meds & Active Scripts Active No Active Prescriptions or Reported Medications Review of Systems Except as stated in HPI: all other systems reviewed are Neg Physical Exam Narrative GENERAL:Well appearing, no acute distress SKIN: Focused skin assessment warm and dry. HEAD: Atraumatic. Normocephalic. EYES: Pupils equal and round. No injection or drainage. ENT: dry mucous membranes NECK: Trachea midline. CARDIOVASCULAR: Regular rate and rhythm. No murmur appreciated. RESPIRATORY: Clear to auscultation. Breath sounds equal bilaterally. GASTROINTESTINAL: Abdomen soft, non-tender, nondistended. MUSCULOSKELETAL: No obvious deformities. NEUROLOGICAL: Awake and alert. No obvious cranial nerve deficits. Moving all extremities. PSYCHIATRIC: Appropriate mood and affect; insight and judgment normal. Data Data Last Documented VS Vital Signs Date Time Temp Pulse Resp B/P (MAP) Pulse Ox O2 Delivery O2 Flow Rate FiO2 12/07/16 10:38 98.9 94 15 120/72 (88) 100 Orders Orders Complete Blood Count With Diff (12/07/16 10:56) Comprehensive Metabolic Panel (12/07/16 10:56) Urinalysis - C+S If Indicated (12/07/16 10:56) Iv Access Insert/Monitor (12/07/16 10:56) Ecg Monitoring (12/07/16 10:56) Oximetry (12/07/16 10:56) Sodium Chlor 0.9% 1000 Ml Inj (Ns 1000 M (12/07/16 10:56) Sodium Chloride 0.9% Flush (Ns Flush) (12/07/16 11:00) Ondansetron Inj (Zofran Inj) (12/07/16 11:00) Metoclopramide Inj (Reglan Inj) (12/07/16 11:00) Sodium Chlor 0.9% 1000 Ml Inj (Ns 1000 M (12/07/16 11:00) Ed Poc Ultrasound (12/07/16 ) Wet Prep Profile (12/07/16 10:58) Gc And Chlamydia Pcr (12/07/16 10:58) Azithromycin Powd Pack (Zithromax Powd P (12/07/16 12:00) Ceftriaxone Inj (Rocephin Inj) (12/07/16 12:00) Lidocaine 1% Inj (50 Ml) (Xylocaine 1% I (12/07/16 12:00) Metronidazole (Flagyl) (12/07/16 12:00) Labs Laboratory Tests Test 12/07/16 11:13 12/07/16 11:20 12/07/16 11:30 White Blood Count 5.5 TH/MM3 Red Blood Count 4.84 MIL/MM3 Hemoglobin 13.2 GM/DL Hematocrit 39.8 % Mean Corpuscular Volume 82.0 FL Mean Corpuscular Hemoglobin 27.3 PG Mean Corpuscular Hemoglobin Concent 33.3 % Red Cell Distribution Width 13.2 % Platelet Count 274 TH/MM3 Mean Platelet Volume 8.3 FL Neutrophils (%) (Auto) 66.3 % Lymphocytes (%) (Auto) 22.8 % Monocytes (%) (Auto) 6.3 % Eosinophils (%) (Auto) 4.1 % Basophils (%) (Auto) 0.5 % Neutrophils # (Auto) 3.7 TH/MM3 Lymphocytes # (Auto) 1.3 TH/MM3 Monocytes # (Auto) 0.3 TH/MM3 Eosinophils # (Auto) 0.2 TH/MM3 Basophils # (Auto) 0.0 TH/MM3 CBC Comment DIFF FINAL Differential Comment Blood Urea Nitrogen 5 MG/DL Creatinine 0.63 MG/DL Random Glucose 69 MG/DL Total Protein 7.5 GM/DL Albumin 3.2 GM/DL Calcium Level 8.7 MG/DL Alkaline Phosphatase 59 U/L Aspartate Amino Transf (AST/SGOT) 15 U/L Alanine Aminotransferase (ALT/SGPT) 16 U/L Total Bilirubin 0.7 MG/DL Sodium Level 134 MEQ/L Potassium Level 3.4 MEQ/L Chloride Level 101 MEQ/L Carbon Dioxide Level 21.4 MEQ/L Anion Gap 12 MEQ/L Estimat Glomerular Filtration Rate 147 ML/MIN Urine Collection Type CLEAN CATCH Urine Color YELLOW Urine Turbidity SLIGHT Urine pH 6.5 Urine Specific [place] 1.021 Urine Protein NEG mg/dL Urine Glucose (UA) NEG mg/dL Urine Ketones 80 OR GREATER mg/dL Urine Occult Blood NEG Urine Nitrite NEG Urine Bilirubin NEG Urine Leukocyte Esterase NEG Urine RBC 0-3 /hpf Urine WBC 3-5 /hpf Urine Squamous Epithelial Cells 6-8 /hpf Urine Amorphous Sediment FEW Microscopic Urinalysis Comment CULT NOT INDICATED Urine Collection Time 1120 Clue Cells (Wet Prep) PRESENT Vaginal Trichomonas (Wet Prep) NONE SEEN Vaginal Yeast (Wet Prep) NONE SEEN MDM Medical Decision Making Medical Screen Exam Complete: Yes Emergency Medical Condition: Yes Interpretation(s) Afebrile, mild tachycardia, normotensive No leukocytosis Mild hypokalemia Some ketones in the urine Clue cells on wet prep Differential Diagnosis Hyperemesis gravidarum, dehydration, renal insufficiency, Trichomonas, gonorrhea , chlamydia Narrative Course This is a 20-year-old female who presents to the emergency department in early with nausea and vomiting. She has a history of severe hyperemesis in and ultimately she had a demise at 19 weeks. She is also reporting copious discharge and has a history of Trichomonas. She has copious discharge on exam. She was treated empirically for sexually transmitted disease given her history. Wet prep demonstrated clue cells so she'll be discharged on Flagyl. Labs are obtained which were reassuring. Patient will be discharged with Lasix, Unisom and Reglan which helped her in the emergency department. Procedures Procedure Narrative Ruzvv-ur-nuka ultrasound: Single intrauterine at 8 weeks 2 days with a heart rate of 169 Diagnosis Primary Impression: Hyperemesis gravidarum Additional Impression: Bacterial vaginosis Patient Instructions: General Instructions Additional Instructions: If you develop severe or worsening abdominal pain, fever>100.4, persistent vomiting or inability to eat or drink return to the emergency department immediately. Follow-up with your auto claim representative at your scheduled appointment. Med/Other Pt SpecificInfo: Prescription(s) given Scripts Doxylamine Succinate (Unisom Sleep Aid) 25 Mg Tablet 1 TAB PO HS Y for NAUSEA, #15 Prov: Juliette Valenzuela MD 12/07/16 Pyridoxine (B-Kitty) 25 Mg Marko 1 TAB PO HS, #30 Prov: Juliette Valenzuela MD 12/07/16 Metoclopramide (Reglan) 10 Mg Tab 10 MG PO TIDAC Y for NAUSEA, #14 TAB 0 Refills Prov: Juliette Valenzuela MD 12/07/16 Metronidazole (Flagyl) 500 Mg Tab 500 MG PO BID for Infection for 7 Days, #14 TAB 0 Refills Prov: Juliette Valenzuela MD 12/07/16 Disposition: 01 DISCHARGE HOME Condition: Stable Juliette Valenzuela MD Dec 07, 2016 11:29
[2016-12-07 11:49] LABS: AUTOMATED NEUTROPHIL # 3.7 TH/MM3 (1.8-7.7); BASOPHIL % 0.5 % (0.0-2.0); EOSINOPHIL # 0.2 TH/MM3 (0-0.4); EOSINOPHIL % 4.1 % (0.0-4.0); HEMATOCRIT 39.8 % (35.0-46.0); HEMO FLAGS DIFF FINAL; LYMPH % 22.8 % (9.0-44.0); LYMPHOCYTE # 1.3 TH/MM3 (1.0-4.8); MEAN CORPUSCULAR HEMOGLOBIN 27.3 PG (27.0-34.0); MEAN CORPUSCULAR HGB CONC 33.3 % (32.0-36.0); MONO % 6.3 % (0.0-8.0); NEUT % 66.3 % (16.0-70.0); PLATELET COUNT 274 TH/MM3 (150-450); RED BLOOD COUNT 4.84 MIL/MM3 (4.00-5.30); RED CELL DISTRIBUTION WIDTH 13.2 % (11.6-17.2); WHITE BLOOD COUNT 5.5 TH/MM3 (4.0-11.0)
[2016-12-07 11:50] LABS: BLOOD, URINE NEG (NEG); GLUCOSE,URINE NEG (NEG); KETONE, URINE 80 OR GREATER mg/dL (NEG); NITRITE,URINE NEG (NEG); PH, URINE 6.5 (5.0-8.5)
[2016-12-07 12:00] VITALS: BP 124/70; PULSE 85; RESP 18; O2SAT 99
[2016-12-07] MEDS ORDERED: metroNIDAZOLE 500 MG TAB PO ONE (12:00)
[2016-12-07] MEDS ORDERED: cefTRIAXone 250 MG VIAL IM ONE (12:00)
[2016-12-07] MEDS ORDERED: AZITHROMYCIN PWD FOR SUSP 1 GM PACKET PO ONE (12:00)
[2016-12-07] MEDS ORDERED: LIDOCAINE HCL 1% 50 ML VIAL IM ONE (12:00)
[2016-12-07 12:02] LABS: METHOD OF COLLECTION CLEAN CATCH; URINE COLOR YELLOW (YELLW/STRAW)
[2016-12-07 12:03] LABS: CULTURE IF INDICATED CULT NOT INDICATED; RBC, URINE 0-3 /hpf (0-3)
[2016-12-07 12:04] LABS: COMMENT (UR) CULT NOT INDICATED; COMMENT2 (UR) MUCOUS PRESENT
[2016-12-07 12:09] LABS: CHLORIDE 101 MEQ/L (98-107); POTASSIUM 3.4 MEQ/L (3.5-5.1); SODIUM (NA) 134 MEQ/L (136-145)
[2016-12-07 12:12] LABS: ANION GAP 12 MEQ/L (5-15); BICARBONATE 21.4 MEQ/L (21.0-32.0)
[2016-12-07 12:13] LABS: BLOOD UREA NITROGEN 5 MG/DL (7-18)
[2016-12-07 12:16] LABS: ALT (GPT) 16 U/L (9-42); AST (GOT) 15 U/L (16-38); GLOMERULAR FILTRATION RATE 147 ML/MIN (>89)
[2016-12-07 12:17] LABS: TOTAL BILIRUBIN ADULT 0.7 MG/DL (0.2-1.0)
[2016-12-07 12:18] LABS: ALKALINE PHOSPHATASE 59 U/L (45-117)
[2016-12-07] MEDS ORDERED: METR-1 PO (12:32)
[2016-12-07] MEDS ORDERED: [UNRECOGNIZED DRUG - OTHER] PO (12:32)
[2016-12-07] MEDS ORDERED: UNIS25TA3 PO (12:32)
[2016-12-07] MEDS ORDERED: REGL10TA5 PO (12:32)
[2016-12-07 13:00] VITALS: BP 143/70; PULSE 80; RESP 18; O2SAT 98
[2016-12-07 19:13] LABS: CHLAMYDIA PCR NOT DETECTED (NOT DETECT); NEISSERIA PCR NOT DETECTED (NOT DETECT)
[2017-01-02] MEDS ORDERED: PREN1TAB PO (11:05)
[2017-01-02] MEDS ORDERED: REGL10TA5 PO (11:05)
[2017-01-02] MEDS ORDERED: METR0.7512 VAGINAL (11:12)
[2017-01-11] MEDS ORDERED: TERC0.4C2 VAGINAL (12:53)
== END 2016-12-07 13:47 | disposition home or self-care (01) ==
LOC: PHED 10:35
DX: O21.0 Mild hyperemesis gravidarum (principal); O23.591 Infection of other part of genital tract in pregnancy, first trimester; Z3A.08 8 weeks gestation of pregnancy
CPT/HCPCS: 80053; 81001; 85025; 87210; 87491; 87591; 96361; 96372; 96374; 96375; 99284; J0696; J2405; J2765; J7030

== ENCOUNTER 2017-02-16 01:30 | Inpatient (IN) | payer MEDICAID, OTHER ==
[~2017-02-16] VITALS: Ht 160 cm; Wt 62.0 kg
[2017-02-16] VITALS (31 sets, daily range): BP systolic 94–144; BP diastolic 54–85; PULSE 78–127; RESP 16–17; TEMP 97.5–98.9; O2SAT 100
[~2017-02-16 01:30] MED LIST changes: -MACR100C2 PO; +METR0.7512 VAGINAL; +PREN1TAB PO; +REGL10TA5 PO; +TERC0.4C2 VAGINAL; -ZOFR4TAB PO; +[UNRECOGNIZED DRUG - OTHER] PO
[2017-02-16] MEDS ORDERED: LACTATED RINGER'S 1000 ML INJ 500 ML IV ONE (01:53)
[2017-02-16] MEDS ORDERED: SODIUM CHLORIDE 0.9% FLUSH 10 ML FLUSH IV FLUSH PRN ×2 (02:00→17:00)
[2017-02-16] MEDS ORDERED: ONDANSETRON HCL 4 MG/2 ML VIAL IV PUSH PRN (02:00)
[2017-02-16] MEDS ORDERED: ACETAMINOPHEN 325 MG TAB PO PRN ×2 (02:00→17:00)
[2017-02-16] MEDS ORDERED: LORazepam 2 MG/ML VIAL IV PUSH PRN (02:00)
[2017-02-16] MEDS: MISOPROSTOL 200 MCG TAB VAGINAL SCH ×3 (02:00→10:00)
[2017-02-16] MEDS ORDERED: DIPHENOXYLATE/ATROPINE 2.5 MG/0.025 MG TAB PO PRN (02:00)
[2017-02-16] MEDS ORDERED: MORPHINE SULFATE 4 MG/ML INJ IV PUSH PRN (02:00)
--- NOTE | 2017-02-16 02:08 | HHI.HP ---
HPI Chief Complaint Nilda hinds Date Seen: Feb 16, 2017 Time Seen: 01:55 Travel History International Travel<30 Days: No Contact w/Intl Traveler<30Days: No Known Affected Area: No History of Present Illness HPI 21-year-old black female G2 P 1L0 at 18 weeks gestation referred from [facility] for rupture the membranes, patient presented to the emergency room with pain and spotting after intercourse and as she was being set up to be examined she had gross rupture of membranes. They at that point wanted to transfer her to a facility that had OB and the family wanted to come to [place] so she was transferred here. OB ED patient was seen and ultrasound was done because the could not find heart tones and ultrasound shows demise at 18 weeks gestation and no amniotic fluid seen no cardiac motion Weeks Gestation: 18 Para: 0 : 2 History Obstetric History Obstetric History Patient delivered vaginally at 21 weeks in 2013 and a nonviable Social History Alcohol Use: No Tobacco Use: No Substance Abuse: No Allergies-Medications (Allergen,Severity, Reaction): Coded Allergies: No Known Allergies (Verified Adverse Reaction, Unknown, 01/30/17) Home Meds Active Scripts Terconazole Vaginal Cream (Terconazole Vaginal Cream) 0.4 % Cream, 1 APPL VAGINAL HS for Fungal Infection, #45 GM 0 Refills For seven days Prov:Keysha Reece 01/11/17 Metronidazole Vaginal Gel (Metronidazole Vaginal Gel) 0.75 % Gel, 1 APPL VAGINAL HS for Infection, #1 GM 0 Refills Prov:Keysha Reece 01/02/17 W/ Calcium-Vit B6-Vit (Prenate Am 1 mg) 1 Mg-500 Mg Tab, 1 TAB PO DAILY , #30 BOTTLE 11 Refills Prov:Keysha Reece 01/02/17 Metoclopramide (Reglan) 10 Mg Tab, 10 MG PO TIDAC Y for NAUSEA, #90 TAB 1 Refill Prov:Keysha Reece 01/02/17 Pyridoxine (B-) 25 Mg Marko, 1 TAB PO HS, #30 Prov:Juliette Valenzuela MD 12/07/16 Review of Systems General / Constitutional: No: Fever, Weight Gain, Chills, Other Eyes: No: Diploplia, Blurred Vision, Visual changes, Pain, Photophobia HENT: No: Headaches, Vertigo, Lightheadedness Cardiovascular: No: Irregular Rhythm, Chest Pain or Discomfort, Palpitations, Tachycardia, Syncope, Varicosities, Edema, Cyanosis Respiratory: No: Cough, Short of Breath, Other Gastrointestinal: No: Nausea, Vomiting, Diarrhea Genitourinary: No: Decreased Urinary Output, Oliguria Musculoskeletal: No: Limited ROM, Weakness, Cramping, Edema, Pain Skin: No Rash, No Itching, No Dryness, No Lumps, No Change in Pigmentation, No Change in Nails, No Alopecia, No Lesions Neurologic: No: Weakness, Dizziness, Syncope, Focal Abnormalities, Coordination Problem, Headache, Slurred Speech, Seizures Psychiatric: No: Depression, Suicidal Ideations, Homicidal Ideation Endocrine: No: Heat Intolerance, Cold Intolerance, Polydipsia, Polyuria, Other Physical Exam Narrative GENERAL: Well-nourished, thin patient. SKIN: Warm and dry. HEAD: Normocephalic and atraumatic. EYES: No scleral icterus. No injection or drainage. ENT: No nasal drainage noted. Mucous membranes pink. Airway patent. NECK: Supple, trachea midline. No JVD. CARDIOVASCULAR: Regular rate and rhythm without murmurs, gallops, or rubs. RESPIRATORY: Breath sounds equal bilaterally. No accessory muscle use. BREASTS: Bilateral exam showed no masses , no retractions, no nipple discharge. ABDOMEN/GI: Abdomen soft, non-tender, bowel sounds present, no rebound, no guarding Gravid to [-18] weeks size Fundal Height: [-18] GENITOURINARY: External Genitalia: intact and normal in appearance BUS glands: [-] Cervix: [-] Dilatation: [-] Effacement: [-] Station: [-] Presentation: [-] Membranes: ruptured] gross ruptured membranes noted in the emergency room at [facility] FHT's: 0 EXTREMITIES: No cyanosis or edema. BACK: Nontender without obvious deformity. No CVA tenderness. NEUROLOGICAL: Awake and alert. Motor and sensory grossly within normal limits. Five out of 5 muscle strength in all muscle groups. Normal speech. Caprini VTE Risk Assessment Caprini VTE Risk Assessment: No/Low Risk (score <= 1) Caprini Risk Assessment Model Point Value = 1 Point Value = 2 Point Value = 3 Point Value = 5 Age 41-60 Minor surgery BMI > 25 kg/m2 Swollen legs Varicose veins or History of unexplained or recurrent spontaneous Oral contraceptives or hormone replacement Sepsis (< 1 month) Serious lung disease, including pneumonia (< 1 month) Abnormal pulmonary function Acute myocardial infarction Congestive heart failure (< 1 month) History of inflammatory bowel disease Medical patient at bed rest Age 61-74 Arthroscopic surgery Major open surgery (> 45 min) Laparoscopic surgery (> 45 min) Malignancy Confined to bed (> 72 hours) Immobilizing plaster cast Central venous access Age >= 75 History of VTE Family history of VTE Factor V Leiden Prothrombin [id number] Lupus anticoagulant Anticardiolipin antibodies Elevated serum homocysteine Heparin-induced thrombocytopenia Other congenital or acquired thrombophilia Stroke (< 1 month) Elective arthroplasty Hip, pelvis, or leg fracture Acute spinal cord injury (< 1 month) Prophylaxis Regimen Total Risk Factor Score Risk Level Prophylaxis Regimen 0-1 Low Early ambulation 2 Moderate Order ONE of the following: *Sequential Compression Device (SCD) *Heparin 5000 units SQ BID 3-4 Higher Order ONE of the following medications: *Heparin 5000 units SQ TID *Enoxaparin/Lovenox 40 mg SQ daily (WT < 150 kg, CrCl > 30 mL/min) *Enoxaparin/Lovenox 30 mg SQ daily (WT < 150 kg, CrCl > 10-29 mL/min) *Enoxaparin/Lovenox 30 mg SQ BID (WT < 150 kg, CrCl > 30 mL/min) AND/OR *Sequential Compression Device (SCD) 5 or more Highest Order ONE of the following medications: *Heparin 5000 units SQ TID (Preferred with Epidurals) *Enoxaparin/Lovenox 40 mg SQ daily (WT < 150 kg, CrCl > 30 mL/min) *Enoxaparin/Lovenox 30 mg SQ daily (WT < 150 kg, CrCl > 10-29 mL/min) *Enoxaparin/Lovenox 30 mg SQ BID (WT < 150 kg, CrCl > 30 mL/min) AND *Sequential Compression Device (SCD) Data Data Orders Orders Admit To Inpatient (02/16/17 ) Vital Signs (Adult) Q4H (02/16/17 01:53) Activity Oob Ad [place] (02/16/17 01:53) Diet Liquid (02/16/17 Breakfast) Sodium Chloride 0.9% Flush (Ns Flush) (02/16/17 02:00) Sodium Chloride 0.9% Flush (Ns Flush) (02/16/17 09:00) Misoprostol (Cytotec) (02/16/17 02:00) Acetaminophen (Tylenol) (02/16/17 02:00) Morphine Inj (Morphine Inj) (02/16/17 02:00) Ondansetron Inj (Zofran Inj) (02/16/17 02:00) Diphenoxylate/Atropine Tab (Lomotil Tab) (02/16/17 02:00) Lorazepam Inj (Ativan Inj) (02/16/17 02:00) Complete Blood Count With Diff (02/16/17 01:53) Antibody Screen (02/16/17 01:53) Prothrombin Time / Inr (Pt) (02/16/17 01:53) Drug Screen, Random Urine (02/16/17 01:53) Lactated Ringer's 1000 Ml Inj (Lr 1000 M (02/16/17 01:53) Labs Bedside ultrasound done in the OB ED shows a breech fetus at 18 weeks size with no amniotic fluid present, no cardiac motion present, and an anterior fundal placenta Assessment/Plan Assessment and Plan This patient is 21-year-old black female L0 now at 18 weeks with premature rupture the membranes and no cardiac motion-- demise Plan--Augment/ induce labor with Cytotec if needed and anticipate uterine evacuation Mike Ferrera II, MD Feb 16, 2017 02:07
[2017-02-16 03:59] LABS: AUTOMATED NEUTROPHIL # 8.6 TH/MM3 (1.8-7.7); BASOPHIL % 0.4 % (0.0-2.0); EOSINOPHIL # 0.1 TH/MM3 (0-0.4); EOSINOPHIL % 0.7 % (0.0-4.0); HEMATOCRIT 31.9 % (35.0-46.0); HEMO FLAGS DIFF FINAL; LYMPH % 11.3 % (9.0-44.0); LYMPHOCYTE # 1.2 TH/MM3 (1.0-4.8); MEAN CELL VOLUME 83.7 FL (80.0-100.0); MEAN CORPUSCULAR HEMOGLOBIN 28.3 PG (27.0-34.0); MEAN CORPUSCULAR HGB CONC 33.8 % (32.0-36.0); MONO % 3.5 % (0.0-8.0); NEUT % 84.1 % (16.0-70.0); PLATELET COUNT 221 TH/MM3 (150-450); RED BLOOD COUNT 3.81 MIL/MM3 (4.00-5.30); RED CELL DISTRIBUTION WIDTH 13.4 % (11.6-17.2); WHITE BLOOD COUNT 10.2 TH/MM3 (4.0-11.0)
[2017-02-16 04:07] LABS: INTERNATIONAL NORMALIZED RATIO 0.9 RATIO; PROTHROMBIN TIME - PATIENT 9.9 SEC (9.8-11.6)
[2017-02-16] MEDS ORDERED: fentaNYL 2MCG-BUPIV 0.125% INJ 100 ML ONE (08:38)
[2017-02-16] MEDS ORDERED: ePHEDrine/NS 25 MG/5 ML SYR ONE (08:58)
[2017-02-16] MEDS ORDERED: SODIUM CHLORIDE 0.9% FLUSH 10 ML FLUSH IV FLUSH SCH ×2 (09:00→21:00)
[2017-02-16] MEDS ORDERED: BUPIVACAINE HCL PF 0.25% 10 ML VIAL ONE (09:02)
[2017-02-16] MEDS ORDERED: OXYTOCIN 30 UNITS-500ML PREMIX 0 ML ONE (10:06)
--- NOTE | 2017-02-16 10:38 | PD.OB.DELI ---
Weeks gestation: 18 Gest age assessed date: Feb 16, 2017 Gest age assessed time: 02:50 Pt started active labor?: Yes Medical induction of labor?: Yes Artificial rupture of membrane: No Anesthesia: Epidural Episiotomy: None Vaginal Delivery: Normal, Spontaneous Presentation: Breech Nuchal Cord: None Delayed cord clamping (45 sec): No Infant: Male Delivery date: Feb 16, 2017 Delivery time: 10:16 One Minute : 0 Five Minute : 0 Ten Minute : 0 Placenta: Spontaneous delivery, Intact Estimated blood loss: 200 Additional Information Previable demised male. RUE appeared swollen and thrombosed. No other obvious abnormalities. IUFD labs ordered: TSH/FT4, B2GP1, lupus anticoag, anticardiolipin AB, HIV, RPR , KB, parvo, CMV, toxo Calvin May MD Feb 16, 2017 10:38
[2017-02-16] MEDS ORDERED: DO NOT ADMINISTER ANTICOAGULANTS PRN (11:15)
[2017-02-16] MEDS ORDERED: fentaNYL 2MCG-BUPIV 0.125% 100 ML EPIDURAL SCH (11:15)
[2017-02-16] MEDS ORDERED: NO SYSTEM NARCOTICS PRN (11:15)
[2017-02-16] MEDS ORDERED: ePHEDrine/NS 25 MG/5 ML SYR IV PUSH PRN (11:15)
[2017-02-16 12:40] LABS: FREE T4 1.2 NG/DL (0.76-1.46)
[2017-02-16] MEDS ORDERED: diphenhydrAMINE HCL 50 MG/ML VIAL IV ONE (13:15)
[2017-02-16] MEDS ORDERED: MEASLES, MUMPS, RUBELLA VACCINE 0.5 ML VIAL SQ ONE (16:00)
[2017-02-16] MEDS ORDERED: DIPHTH/TETANUS/ACEL PERTUSSIS (BOOSTER) 0.5 ML VIAL/PFS IM ONE (16:00)
[2017-02-16] MEDS ORDERED: ZOLPIDEM TARTRATE 5 MG TAB PO PRN (17:00)
[2017-02-16] MEDS ORDERED: BENZOCAINE 20% TOPICAL SPRAY 60 ML CAN TOPICAL PRN (17:00)
[2017-02-16] MEDS ORDERED: OXYTOCIN 30 UNITS-500ML PREMIX 500 ML IV SCH (17:00)
[2017-02-16] MEDS ORDERED: IBUPROFEN 800 MG TAB PO PRN (17:00)
[2017-02-16] MEDS ORDERED: ALUMINUM/MAGNESIUM/SIMETH 30 ML CUP PO PRN (17:00)
[2017-02-16] MEDS ORDERED: ONDANSETRON ODT 4 MG TAB PO PRN (17:00)
[2017-02-16] MEDS ORDERED: DOCUSATE SODIUM 50 MG/SENNA 8.6 MG TAB PO PRN (17:00)
[2017-02-16] MEDS ORDERED: WITCH HAZEL 50%/GLYCERIN 12.5% 40 PAD JAR TOPICAL PRN (17:00)
--- NOTE | 2017-02-16 17:18 | HHI.DCPOC ---
Discharge Care Plan Diagnosis: (1) premature rupture of membranes (PPROM) delivered, current hospitalization (2) demise before 20 weeks with retention of fetus (3) 18 weeks gestation of Report Symptoms to Your Doctor -Temperature above 100.5 degrees -Unusual pain or calf pain -Increased vaginal bleeding -Painful or difficulty urinating -Feelings of extreme sadness or anxiety after 2 weeks Goals to Promote Your Health * To prevent worsening of your condition and complications * To maintain your health at the optimal level Directions to Meet Your Goals Take your medications as prescribed Follow your dietary instruction Follow activity as directed Ensure plenty of rest for recovery Drink fluids for hydration Keep your appointments as scheduled Take your immunizations and boosters as scheduled If your symptoms worsen call your PCP, if no PCP go to Urgent Care Center or Emergency Room Smoking is Dangerous to Your Health. Avoid second hand smoke Call the 24-hour crisis hotline for domestic abuse at Calvin May MD Feb 16, 2017 17:18
--- NOTE | 2017-02-16 17:21 | HHI.DS ---
Admission Date Feb 16, 2017 at 02:01 Discharge Date: Feb 16, 2017 Admitting Diagnosis PPROM demise Diagnosis: Delivery Date: Feb 16, 2017 Vaginal Delivery: Normal : Male Brief History 21-year-old black female G2 P 1L0 at 18 weeks gestation referred from [facility] for rupture the membranes, patient presented to the emergency room with pain and spotting after intercourse and as she was being set up to be examined she had gross rupture of membranes. They at that point wanted to transfer her to a facility that had OB and the family wanted to come to [place] so she was transferred here. OB ED patient was seen and ultrasound was done because the could not find heart tones and ultrasound shows demise at 18 weeks gestation and no amniotic fluid seen no cardiac motion Hospital Course Pt was admitted and cytotec induction initiated. She received a single dose and was complete and delivered a non-viable demised baby boy. (For completed information, please see delivery summary). She was monitored for several hours. Pain was minimal and bleeding was little. She desired d/c home. Pt Condition on Discharge: Good Discharge Disposition: Discharge Home Discharge Instructions Diet Instructions: As Tolerated, No Restrictions Activities You Can Perform: Shower Only-No Bath, Pelvic Rest Additional Activity Instruc.: 1. Nothing in the vagina for 6 weeks 2. Return to the hospital for temperature >101F, nausea/vomiting, severe pain, foul smelling discharge, redness/drainage/pus from the incision, or bleeding >2 pads/hour, breast pain/redness 3. No tub baths until follow up appointment 4. Use ibuprofen 600-800mg every 6-8 hours as needed for discomfort. 5. Follow up in 2 weeks with your OBGYN Calvin May MD Feb 16, 2017 17:21
[2017-02-18 19:52] LABS: PARVOVIRUS B19 IGG 5.1
[2017-02-19 15:53] LABS: THROMBIN TIME FOR LA ND sec (13-19)
== END 2017-02-16 18:49 | disposition home or self-care (01) | DRG 779 ==
LOC: HOBED 01:30 → H2EA 02:01
PROVIDERS: ADMIT Obstetrics & Gynecology Maternal & Fetal Medicine; ATTEND Obstetrics & Gynecology Maternal & Fetal Medicine
PROC: 10E0XZZ Delivery of Products of Conception, External Approach (ICD-10-PCS; principal; 2017-02-16)
PROC: 3E0R3BZ Introduction of Anesthetic Agent into Spinal Canal, Percutaneous Approach (ICD-10-PCS; 2017-02-16)
PROC: 00HU33Z Insertion of Infusion Device into Spinal Canal, Percutaneous Approach (ICD-10-PCS; 2017-02-16)
DX: O02.1 Missed abortion (principal); O32.1XX0 Maternal care for breech presentation, not applicable or unspecified; N93.0 Postcoital and contact bleeding; O42.912 Preterm premature rupture of membranes, unspecified as to length of time between rupture and onset of labor, second trimester; Z3A.18 18 weeks gestation of pregnancy; Z37.1 Single stillbirth
CPT/HCPCS: 76815; 80307; 83030; 84112; 84439; 84443; 85025; 85610; 85613; 85730; 86146; 86147; 86592; 86645; 86703; 86747; 86778; 86850; 86900; 86901; 88300; 88305; J0690; J1200; J2270; J2590; J3010; J7120

== ENCOUNTER 2017-08-16 08:30 | Emergency (ER) | payer OTHER ==
[~2017-08-16] VITALS: Ht 160 cm; Wt 59.0 kg
[~2017-08-16 08:30] MED LIST changes: -METR0.7512 VAGINAL; -REGL10TA5 PO; -TERC0.4C2 VAGINAL; -[UNRECOGNIZED DRUG - OTHER] PO
[2017-08-16 08:35] VITALS: BP 127/79; PULSE 128; RESP 16; TEMP 98.9; O2SAT 99
[2017-08-16 08:55] LABS: BILIRUBIN, URINE NEG (NEG); BLOOD, URINE LARGE (NEG); GLUCOSE,URINE NEG (NEG); KETONE, URINE 15 mg/dL (NEG); NITRITE,URINE NEG (NEG); URINE COLOR YELLOW (YELLW/STRAW); URINE LEUKOCYTE ESTERASE SMALL (NEG)
[2017-08-16 09:00] LABS: RBC, URINE 100-200 /hpf (0-3); SQUAMOUS EPITHELIAL CELL URINE > 8 /hpf (0-5); WHITE BLOOD CELL CLUMPS FEW
[2017-08-16 09:01] LABS: BACTERIA, URINE FEW /hpf
[2017-08-16] MEDS ORDERED: SODIUM CHLOR 0.9% 1000 ML INJ 1,000 ML IV SCH (09:32)
[2017-08-16] MEDS ORDERED: ONDANSETRON ODT 4 MG TAB PO ONE (09:45)
[2017-08-16] MEDS ORDERED: KETOROLAC TROMETHAMINE 30 MG/ML (IVP) VIAL IVP ONE (09:45)
[2017-08-16] MEDS ORDERED: SODIUM CHLORIDE 0.9% FLUSH 10 ML FLUSH IV FLUSH PRN (09:45)
[2017-08-16 09:49] LABS: AUTOMATED NEUTROPHIL # 10.5 TH/MM3 (1.8-7.7); BASOPHIL # 0.4 TH/MM3 (0-0.2); BASOPHIL % 3.7 % (0.0-2.0); EOSINOPHIL % 0.1 % (0.0-4.0); HEMATOCRIT 34.7 % (35.0-46.0); HEMOGLOBIN 11.7 GM/DL (11.6-15.3); LYMPH % 6.2 % (9.0-44.0); LYMPHOCYTE # 0.7 TH/MM3 (1.0-4.8); MEAN CELL VOLUME 76.9 FL (80.0-100.0); MEAN CORPUSCULAR HEMOGLOBIN 25.9 PG (27.0-34.0); MEAN CORPUSCULAR HGB CONC 33.6 % (32.0-36.0); MEAN PLATELET VOLUME 8.4 FL (7.0-11.0); MONO % 4.4 % (0.0-8.0); MONOCYTE # 0.5 TH/MM3 (0-0.9); NEUT % 85.6 % (16.0-70.0); PLATELET COUNT 279 TH/MM3 (150-450); RED BLOOD COUNT 4.51 MIL/MM3 (4.00-5.30); RED CELL DISTRIBUTION WIDTH 16.6 % (11.6-17.2); WHITE BLOOD COUNT 12.1 TH/MM3 (4.0-11.0)
[2017-08-16 10:00] LABS: INTERNATIONAL NORMALIZED RATIO 1.1 RATIO; PROTHROMBIN TIME - PATIENT 11.2 SEC (9.8-11.6)
[2017-08-16 10:19] LABS: CALCIUM 8.5 MG/DL (8.5-10.1)
[2017-08-16 10:20] LABS: BICARBONATE 22.3 MEQ/L (21.0-32.0); GLUCOSE,RANDOM 91 MG/DL (74-106)
[2017-08-16 10:21] LABS: ALBUMIN 3.2 GM/DL (3.4-5.0)
[2017-08-16 10:22] VITALS: BP 148/70; PULSE 106; RESP 18; O2SAT 98
[2017-08-16 10:23] VITALS: RESP 18
[2017-08-16 10:23] LABS: AST (GOT) 22 U/L (16-38); CREATININE 0.65 MG/DL (0.50-1.00); GLOMERULAR FILTRATION RATE 141 ML/MIN (>89)
[2017-08-16 10:24] LABS: CHLORIDE 106 MEQ/L (98-107); SODIUM (NA) 136 MEQ/L (136-145)
[2017-08-16 10:25] LABS: TOTAL PROTEIN 7.7 GM/DL (6.4-8.2)
[2017-08-16 10:26] LABS: ALKALINE PHOSPHATASE 88 U/L (45-117); TOTAL BILIRUBIN ADULT 0.8 MG/DL (0.2-1.0)
[2017-08-16 10:31] LABS: ALT (GPT) 14 U/L (9-42); BLOOD UREA NITROGEN 5 MG/DL (7-18)
[2017-08-16] MEDS ORDERED: IOHEXOL 350 MG/ML 10 ML VIAL (for RAD DIAG) IVCONTRAST ONE (12:02)
--- NOTE | 2017-08-16 12:22 | RADRPT ---
EXAM DATE: 08/16/2017 11:56 AM EDT AGE/SEX: 21 years / Female INDICATIONS: Diffuse abdomen and back pain x 2 days. CLINICAL DATA: This is the patient's initial encounter. Patient reports that signs and symptoms have been present for 2 days and indicates a pain score of 7/10. MEDICAL/SURGICAL HISTORY: None. section. ORAL CONTRAST: No oral contrast ingested. RADIATION DOSE: 6.05 CTDI (mGy) COMPARISON: No prior exams available for comparison. TECHNIQUE: Multiple contiguous axial images were obtained through the abdomen and pelvis following b olus infusion of 90 ml Omnipaque 350 (iohexol) nonionic water-soluble contrast as a single exam dos e. No oral contrast ingested. Using automated exposure control and adjustment of the mA and/or kV ac cording to patient size, the radiation dose was kept as low as reasonably achievable to obtain optima l diagnostic quality images. FINDINGS: Lower Lungs: The visualized lower lungs are clear. Liver: The liver has a homogeneous density without space-occupying lesion. There is no dilation of th e biliary tree. Spleen: Homogeneous density without enlargement. Pancreas: Unremarkable without mass or calcification. Kidneys: Normal in size and shape. No evidence of mass or hydronephrosis. Questionable tiny 2 mm non obstructing stone midpole left kidney. 6 mm benign-appearing cyst midpole right kidney. Ureters are n ondilated. Adrenal Glands: Unremarkable. Aorta: The aorta and proximal iliac vessels are grossly unremarkable without aneurysmal dilation. Bowel/Mesentery: The bowel loops are grossly unremarkable. The cecum and sigmoid colon have a normal configuration. No inflammatory changes are seen. There is stool throughout the colon. Abdominal Wall: Intact. Retroperitoneum: No evidence of adenopathy in the retrocrural, para-aortic, or deep pelvic regions. Bladder: Contours are smooth. Reproductive Organs: The uterus appears to be mildly prominent. There is a 1.8 cm right adnexal cyst . No definite free fluid in the cul-de-sac. There are some mildly prominent vascular structures in vero th adnexal areas. Inguinal: The inguinal region is unremarkable without evidence of adenopathy. Bony Structures: Unremarkable. CONCLUSION: 1. Questionable tiny 2 mm nonobstructing stone midpole left kidney. 2. 6 mm benign-appearing right renal cyst. 3. 1.8 cm right adnexal cyst. This most likely a right ovarian cyst. 4. Mildly prominent bilateral vascular structures in the adnexal regions. This is nonspecific but ca n be seen with pelvic congestion syndrome. Electronically signed by: Lukas Potts MD 08/16/2017 12:21 PM EDT
[2017-08-16] MEDS ORDERED: traMADol HCL 50 MG TAB PO ONE (12:30)
[2017-08-16] MEDS ORDERED: BACT800T5 PO (12:54)
[2017-08-16] MEDS ORDERED: TRAM50TA PO (12:54)
--- NOTE | 2017-08-16 12:54 | PD ---
HPI Chief Complaint: Abdominal Pain Time Seen by Provider: 08:54 Travel History International Travel<30 days: No Contact w/Intl Traveler<30days: No Traveled to known affect area: No History of Present Illness HPI Patient is a 21 year old female who comes in complaining of abdominal pain and back pain with nausea. She says it started two days ago with her menstrual cycle. She says that she has had cramps in the past, but they have never been this bad. She denies fever or chills. She does report urinating more often. She denies pain with urination. She denies fever or chills. She localizes her pain across her lower abdomen. Severity is mild to moderate. 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) Cardiovascular Problems: No Diminished Hearing: No Gastrointestinal Disorders: Yes (NAUSEA/VOMITING) Headaches: Yes Immunizations Current: Yes Migraines: Yes ?: Not LMP: 08/16/2017 : 3 Para: 0 Miscarriage: 1 : 1 Past Surgical History Section: Yes (Breech position: 17 WEEKS PREMIE) Family History Family Hypercholesterolemia: Yes Social History Alcohol Use: No Tobacco Use: No Substance Use: No Allergies-Medications (Allergen,Severity, Reaction): Coded Allergies: No Known Allergies (Verified Allergy, Unknown, 08/16/17) Reported Meds & Prescriptions Reported Meds & Active Scripts Active No Active Prescriptions or Reported Medications Review of Systems Except as stated in HPI: all other systems reviewed are Neg General / Constitutional: No: Fever, Chills HENT: No: Headaches, Lightheadedness Cardiovascular: No: Chest Pain or Discomfort Respiratory: No: Shortness of Breath Gastrointestinal: Positive: Abdominal Pain Genitourinary: Positive: Urgency, Frequency, Flank Pain Musculoskeletal: No: Myalgias Skin: No Rash, No Change in Pigmentation Neurologic: No: Weakness, Dizziness Physical Exam Narrative GENERAL: Awake and alert, in no acute distress. SKIN: Focused skin assessment warm/dry. HEAD: Atraumatic. Normocephalic. EYES: Pupils equal and round. No scleral icterus. ENT: Mucous membranes pink and moist. NECK: Trachea midline. No JVD. CARDIOVASCULAR: Regular rate and rhythm. No murmur appreciated. RESPIRATORY: No accessory muscle use. Clear to auscultation. Breath sounds equal bilaterally. GASTROINTESTINAL: Abdomen soft, nondistended. Tender to palpation across the lower abdomen, worse in the RLQ, no rebound or guarding. MUSCULOSKELETAL: No obvious deformities. No clubbing. No cyanosis. No edema. NEUROLOGICAL: Awake and alert. No obvious cranial nerve deficits. Motor grossly within normal limits. Normal speech. PSYCHIATRIC: Appropriate mood and affect; insight and judgment normal. Data Data Last Documented VS Vital Signs Date Time Temp Pulse Resp B/P (MAP) Pulse Ox O2 Delivery O2 Flow Rate FiO2 08/16/17 10:23 18 08/16/17 10:22 106 148/70 (96) 98 Room Air 08/16/17 08:35 98.9 Orders Orders Urinalysis - C+S If Indicated (08/16/17 08:46) Ed Urine Pregnancytest Poc (08/16/17 08:46) Urine Culture (08/16/17 08:45) Complete Blood Count With Diff (08/16/17 09:32) Comprehensive Metabolic Panel (08/16/17 09:32) Prothrombin Time / Inr (Pt) (08/16/17 09:32) Act Partial Throm Time (Ptt) (08/16/17 09:32) Ct Abd/Pel W Iv Contrast(Rout) (08/16/17 09:32) Iv Access Insert/Monitor (08/16/17 09:32) Ecg Monitoring (08/16/17 09:32) Oximetry (08/16/17 09:32) Sodium Chlor 0.9% 1000 Ml Inj (Ns 1000 M (08/16/17 09:32) Sodium Chloride 0.9% Flush (Ns Flush) (08/16/17 09:45) Ketorolac Inj (Toradol Inj) (08/16/17 09:45) Ondansetron Odt (Zofran Odt) (08/16/17 09:45) Iohexol 350 Inj (Omnipaque 350 Inj) (08/16/17 12:02) Tramadol (Ultram) (08/16/17 12:30) Labs Laboratory Tests Test 08/16/17 08:45 08/16/17 09:40 Urine Collection Type CLEAN CATCH Urine Color YELLOW Urine Turbidity SL CLOUDY Urine pH 6.0 Urine Specific [place] 1.025 Urine Protein 30 mg/dL Urine Glucose (UA) NEG mg/dL Urine Ketones 15 mg/dL Urine Occult Blood LARGE Urine Nitrite NEG Urine Bilirubin NEG Urine Urobilinogen 0.2 MG/DL Urine Leukocyte Esterase SMALL Urine RBC 100-200 /hpf Urine WBC 25-49 /hpf Urine WBC Clumps FEW Urine Squamous Epithelial Cells > 8 /hpf Urine Bacteria FEW /hpf Microscopic Urinalysis Comment CULTURE INDICATED Urine Collection Time 08:45 White Blood Count 12.1 TH/MM3 Red Blood Count 4.51 MIL/MM3 Hemoglobin 11.7 GM/DL Hematocrit 34.7 % Mean Corpuscular Volume 76.9 FL Mean Corpuscular Hemoglobin 25.9 PG Mean Corpuscular Hemoglobin Concent 33.6 % Red Cell Distribution Width 16.6 % Platelet Count 279 TH/MM3 Mean Platelet Volume 8.4 FL Neutrophils (%) (Auto) 85.6 % Lymphocytes (%) (Auto) 6.2 % Monocytes (%) (Auto) 4.4 % Eosinophils (%) (Auto) 0.1 % Basophils (%) (Auto) 3.7 % Neutrophils # (Auto) 10.5 TH/MM3 Lymphocytes # (Auto) 0.7 TH/MM3 Monocytes # (Auto) 0.5 TH/MM3 Eosinophils # (Auto) 0.0 TH/MM3 Basophils # (Auto) 0.4 TH/MM3 CBC Comment DIFF FINAL Differential Comment Prothrombin Time 11.2 SEC Prothromb Time International Ratio 1.1 RATIO Activated Partial Thromboplast Time 26.6 SEC Blood Urea Nitrogen 5 MG/DL Creatinine 0.65 MG/DL Random Glucose 91 MG/DL Total Protein 7.7 GM/DL Albumin 3.2 GM/DL Calcium Level 8.5 MG/DL Alkaline Phosphatase 88 U/L Aspartate Amino Transf (AST/SGOT) 22 U/L Alanine Aminotransferase (ALT/SGPT) 14 U/L Total Bilirubin 0.8 MG/DL Sodium Level 136 MEQ/L Potassium Level 3.5 MEQ/L Chloride Level 106 MEQ/L Carbon Dioxide Level 22.3 MEQ/L Anion Gap 8 MEQ/L Estimat Glomerular Filtration Rate 141 ML/MIN [facility] Medical Decision Making Medical Screen Exam Complete: Yes Emergency Medical Condition: Yes Medical Record Reviewed: Yes Differential Diagnosis UTI vs pyelonephritis vs renal stone vs menstrual cramps vs ovarian cyst vs appendicitis Narrative Course Patient is a 21-year-old female comes in complaining of abdominal pain and nausea. Exam shows tenderness across the lower abdomen. IV established, labs sent. Labs show no acute abnormalities. Urinalysis is positive for UTI. CT of the abdomen and pelvis performed shows a right ovarian cyst. Last 24 hours Impressions Abdomen/Pelvis CT 08/16/17 0932 Signed Impressions: CONCLUSION: 1. Questionable tiny 2 mm nonobstructing stone midpole left kidney. 2. 6 mm benign-appearing right renal cyst. 3. 1.8 cm right adnexal cyst. This most likely a right ovarian cyst. 4. Mildly prominent bilateral vascular structures in the adnexal regions. This is nonspecific but can be seen with pelvic congestion syndrome. Patient informed of the results. She was given IV fluids, Toradol, Zofran. She continued to have some back pain, she was given a tramadol. Patient advised to follow-up with [facility] to further evaluate the cyst. Advised to return to the ED as needed for any worsening symptoms. Given prescription for antibiotics as well as pain medicine. Diagnosis Primary Impression: UTI (urinary tract infection) Qualified Codes: N30.00 - Acute cystitis without hematuria Additional Impression: Ovarian cyst Qualified Codes: N83.201 - Unspecified ovarian cyst, right side Referrals: Monica Quezada MD call for appointment Patient Instructions: General Instructions, Ovarian Cyst (ED), Urinary Tract Infection in Women (ED) Additional Instructions: Drink plenty fluids. Take all of your antibiotic. Take pain medicine as needed. You can take ibuprofen for pain as well. Return to the ED as needed for any worsening symptoms. Follow-up with gynecology regarding your right ovarian cyst. Scripts Tramadol (Tramadol) 50 Mg Tab 50 MG PO Q6H Y for PAIN, #10 TAB 0 Refills Prov: Nikki Rios MD 08/16/17 Sulfamethoxazole-Trimethoprim (Bactrim DS) 800-160 Mg Tab 1 TAB PO BID for Infection, #6 TAB 0 Refills Prov: Nikki Rios MD 08/16/17 Disposition: 01 DISCHARGE HOME Condition: Stable Nikki Rios MD August 16, 2017 12:54
== END 2017-08-16 13:20 | disposition home or self-care (01) ==
LOC: PHED 08:30
DX: N30.00 Acute cystitis without hematuria (principal); N83.201 Unspecified ovarian cyst, right side; M54.9 Dorsalgia, unspecified
CPT/HCPCS: 74177; 80053; 81001; 84703; 85025; 85610; 85730; 87086; 96361; 96374; 99284; J1885; J7030; Q9967

== ENCOUNTER 2018-03-12 21:52 | Observation (INO) ==
[2018-03-12 23:11] LABS: Bacteria,Urine Occasional /hpf; Bilirubin,Urine Negative (Negative); Clarity,Urine Cloudy (Clear); Color,Urine Yellow (Yellw/Straw); Glucose,Urine (UA) Negative (Negative); Hyaline Casts,Urine 1 /lpf (0-3); Leukocyte Esterase,Urine Small (Negative); Mucus,Urine Few /lpf (Occasional); Nitrite,Urine Negative (Negative); Specific Gravity,Urine 1.021 (1.002-1.035); Squamous Epithelial Cell,Urine 11 /hpf (0-5)
--- NOTE | 2018-03-12 23:55 | ED ---
History of Present Illness Primary Care Physician: No Primary Care Physician Dr. Shaheen Silva Chief Complaint: Headache and dizziness History of Present Illness: Patient is 22-year-old white female at 26 weeks who [facility] who presents complaining of headache and dizziness. Patient does have a history of migraines. Denies abdominal pain leakage of fluid or bleeding. NST is reactive and no contractions. Patient has a history of 2- second trimester losses 1 at 16 weeks 1 at 19 weeks and has a cervical cerclage in place now Weeks Gestation:: 26 Para: 0 : 3 Total # of Miscarriage(s): 2 (She has had 116 weight loss and a 19-week loss and has a cerclage and presently) Review of Systems All other systems reviewed negative except as stated in HPI Constitutional: Reports headache(s) Neurologic: Reports dizziness, Reports headache(s) PMFSH - History History Provided By: Patient, Family Member - Medical History Medical History: Medical History (Last Updated 01/22/18 @ 20:04 by Mariia Garner) Patient denies medical problems (Acute) Cervical cerclage suture present Miscarriage - Surgical History Surgical History: Surgical History (Last Reviewed 01/22/18 @ 19:55 by Connor Hicks RN) No history of previous surgery (Acute) - Tobacco History Second Hand Smoke Exposure: No Smoking Status: Never smoker - Alcohol History How Often Do You Have a Drink Containing Alcohol: Never - Substance Use History Substance History: No History of Abuse - Travel History History of Recent Travel: No Recent Travel in the [place] Within the Last 8 Weeks: No Recent Travel Out of the Country Within the Last 8 Weeks: No Medications and Allergies Allergies Allergy/AdvReac Type Severity Reaction Status Date / Time Penicillins Allergy Severe Itching Verified 03/12/18 23:17 Home Medications Medication Instructions Recorded Confirmed Type PNV,calcium 60-eyiy-isddn acid 1 tab PO DAILY 11/22/17 03/12/18 History [PrePlus] Exam Vital signs: Vital Signs 03/12/18 22:21 03/12/18 22:22 03/12/18 22:40 Temperature 98.1 F Pulse Rate 83 82 99 H Respiratory Rate 18 Blood Pressure 144/92 H 140/85 147/95 H 03/12/18 23:00 Temperature Pulse Rate 75 Respiratory Rate Blood Pressure 145/84 H Intake & Output 03/12/18 03/12/1818 06:59 18:59 06:59 Weight 65.317 kg Narrative: GENERAL: Well-nourished, well-developed patient. SKIN: Warm and dry. HEAD: Normocephalic and atraumatic. EYES: No scleral icterus. No injection or drainage. ENT: No nasal drainage noted. Mucous membranes pink. Airway patent. NECK: Supple, trachea midline. No JVD. CARDIOVASCULAR: Regular rate and rhythm without murmurs, gallops, or rubs. RESPIRATORY: Breath sounds equal bilaterally. No accessory muscle use. BREASTS: Bilateral exam showed no masses , no retractions, no nipple discharge. ABDOMEN/GI: Abdomen soft, non-tender, bowel sounds present, no rebound, no guarding Gravid to [26-] weeks size Fundal Height: [26-] GENITOURINARY: External Genitalia: intact and normal in appearance BUS glands: [-] Cervix: [post-] Dilatation: [-FT with cerclage palpable] Effacement: [-30] Station: [-3] Presentation: [vtx-] Membranes: [intact ] Uterine Contractions: [-none] FHT's: Category: [1-] Baseline: [-133] Reactive: [R-] Variability: [-mod] Decels: [0-] + accels EXTREMITIES: No cyanosis or edema. BACK: Nontender without obvious deformity. No CVA tenderness. NEUROLOGICAL: Awake and alert. Motor and sensory grossly within normal limits. Five out of 5 muscle strength in all muscle groups. Normal speech. Results - Labs Labs: Laboratory Results - last 24 hr 03/12/18 22:20 Urine Color Yellow Urine Clarity Cloudy H Urine pH 6.0 Ur Specific [place] 1.021 Urine Protein 30 H Urine Glucose (UA) Negative Urine Ketones Negative Urine Occult Blood Negative Urine Nitrate Negative Urine Bilirubin Negative Urine Urobilinogen Less than 2 Ur Leukocyte Esterase Small H Urine RBC 2 Urine WBC 11 H Ur Squamous Epith Cells 11 Urine Bacteria Occasional H Hyaline Casts 1 Urine Mucus Few H Micro UA Comment Culture indicated Ur Microscopic Review Not Reportable Urine Culture Comments Culture indicated Assessment and Plan - Diagnosis (1) 26 weeks gestation of Code(s): Z3A.26 - 26 weeks gestation of Status: Acute (2) Headache Code(s): R51 - Headache Status: Acute Qualifiers: Headache type: tension-type Intractability: not intractable (3) Dizziness Code(s): R42 - Dizziness and giddiness Status: Acute (4) UTI (urinary tract infection) during Code(s): O23.40 - Unspecified infection of urinary tract in , unspecified trimester Status: Acute (5) Hypertension affecting in second trimester Code(s): O16.2 - Unspecified maternal hypertension, second trimester Status: Acute (6) Cervical incompetence during Code(s): O34.30 - Maternal care for cervical incompetence, unspecified trimester Status: Acute (7) Prior complicated by SGA (small for gestational age), antepartum Code(s): O09.299 - Supervision of with other poor reproductive or obstetric history, unspecified trimester Status: Acute - Plan The plan for this patient being 26 weeks and planing of headache and dizziness in combination with her blood pressure is elevated tonight in the 140- 150 over 80s-90s range which is new for her according to the patient and according to previous note I did on her over a month ago had a normal blood pressure then. Plan to admit for 24-hour observation to a 24-hour urine, protein creatinine ratio, PIH lab. And treat headaches symptomatically Discharge Plan - Discharge Disposition Patient Disposition: ED Admit(ED Internal Use Only) - Discharge Condition Condition: Stable - Discharge Order Discharge Orders: Discharge Order (Routine); Ordered 03/12/18 Ordered By: Mike Ferrera - Physicians Team ED Provider: Mike Ferrera Primary Care Provider: Primary Care Stefania Gardner - Rxs /Orders / Referrals /Forms Prescriptions: No Action PNV,calcium 52-audq-ydwei acid [PrePlus] 27 mg iron- 1 mg Tablet 1 tab PO DAILY - Discharge Instructions Print Language: Turkish
[2018-03-13] MEDS ORDERED: Zolpidem Tartrate 5 MG Tablet PO PRN (00:07)
[2018-03-13] MEDS ORDERED: Docusate Sodium 100 MG Capsule PO PRN (00:07)
[2018-03-13 01:14] LABS: Hematocrit 30.2 % (35.0-46.0); Hemoglobin 10.7 gm/dL (11.6-15.3); Mean Corpuscular HGB Conc 35.3 % (32.0-36.0); Mean Corpuscular Hemoglobin 29.8 pg (27.0-34.0); Mean Corpuscular Volume 84.5 fL (80.0-100.0); Mean Platelet Volume 9.1 fL (7.0-11.0); Platelet Count 241 th/mm3 (150-450); Red Blood Count 3.57 mil/mm3 (4.00-5.30); Red Cell Distribution Width 14.4 % (11.6-17.2)
[2018-03-13 01:24] LABS: Protein/Creatinine Ratio,Urine 0.26 (0.00-0.14); Total Protein,Urine Random 36.3 mg/dL (0-11.8)
[2018-03-13 01:31] LABS: Alanine Aminotransferase 9 U/L (10-53); Albumin 2.2 g/dL (3.4-5.0); Anion Gap 10 meq/L (5-15); Aspartate Aminotransferase 12 U/L (15-37); Blood Urea Nitrogen 11 mg/dL (7-18); Calcium 8.1 mg/dL (8.5-10.1); Carbon Dioxide 22.3 meq/L (21.0-32.0); Chloride 109 meq/L (98-107); Glomerular Filtration Rate Greater Than 89 mL/min (>89); Glucose,Random 79 mg/dL (74-106); Potassium 3.9 meq/L (3.5-5.1); Sodium 141 meq/L (136-145); Uric Acid 4.1 mg/dl (2.6-6.0)
[2018-03-13 01:32] LABS: Alkaline Phosphatase 107 U/L (45-117); Total Protein 6.4 g/dL (6.4-8.2)
[2018-03-13] MEDS: Acetaminophen 325 MG Tablet PO PRN (08:01)
[2018-03-13] MEDS: Nitrofurantoin Monohydrate-Macrocrystal 100 MG Capsule PO SCH (08:23)
[2018-03-13] MEDS: Prenatal Vit/Ca/Iron/Folic Acid Tablet PO SCH (08:23)
--- NOTE | 2018-03-13 09:25 | P.OBANTE ---
Subjective Interval History: Pt seen and examined this morning. AFVSS this am , BP 121/59. Denies dysuria. No breast tenderness. Appetite good. No nausea or vomiting. She is on bed rest. Ambulating well. Denies dizziness, calf pain or shortness of breath. This morning she reports 6/10 temporal headache and blurry vision. Denies CP, RUQ pain, LE swelling, n/v or abdominal pain. Antepartum ROS: Reports: movement normal, Other Denies: Loss of fluid, Vaginal bleeding, Contractions Objective Vital Signs and I&O: Vital Signs 03/12/18 22:21 03/12/18 22:22 03/12/18 22:40 Temperature 98.1 F Pulse Rate 83 82 99 H Respiratory Rate 18 Blood Pressure 144/92 H 140/85 147/95 H 03/12/18 23:00 03/12/18 23:20 03/13/18 00:00 Temperature Pulse Rate 75 74 Respiratory Rate 18 Blood Pressure 145/84 H 152/87 H 03/13/18 00:01 03/13/18 00:19 03/13/18 00:56 Temperature 98.8 F Pulse Rate 67 91 H 82 Respiratory Rate 18 Blood Pressure 151/85 H 137/84 133/83 03/13/18 05:09 03/13/18 05:25 03/13/18 08:16 Temperature 98.6 F 98.9 F Pulse Rate 86 76 Respiratory Rate 16 18 Blood Pressure 121/59 L 123/65 Intake & Output 03/12/18 03/13/18 03/13/18 18:59 06:59 18:59 Weight 65.317 kg Lab and Micro Results: Laboratory Results - last 24 hr 03/12/18 03/12/18 03/13/18 22:20 22:20 00:32 WBC 8.0 RBC 3.57 L Hgb 10.7 L Hct 30.2 L MCV 84.5 MCH 29.8 MCHC 35.3 RDW 14.4 Plt Count 241 MPV 9.1 Sodium Potassium Chloride Carbon Dioxide Anion Gap BUN Creatinine Estimated GFR Random Glucose Uric Acid Calcium Total Bilirubin AST ALT Alkaline Phosphatase Total Protein Albumin Urine Color Yellow Urine Clarity Cloudy H Urine pH 6.0 Ur Specific [place] 1.021 Urine Protein 30 H Urine Glucose (UA) Negative Urine Ketones Negative Urine Occult Blood Negative Urine Nitrate Negative Urine Bilirubin Negative Urine Urobilinogen Less than 2 Ur Leukocyte Esterase Small H Urine RBC 2 Urine WBC 11 H Ur Squamous Epith Cells 11 Urine Bacteria Occasional H Hyaline Casts 1 Urine Mucus Few H Micro UA Comment Culture indicated Ur Microscopic Review Not Reportable Urine Culture Comments Culture indicated Ur Random Creatinine 142 U Random Total Protein 36.3 H Protein/Creatinin Ratio 0.26 H 03/13/ 00:32 WBC RBC Hgb Hct MCV MCH MCHC RDW Plt Count MPV Sodium 141 Potassium 3.9 Chloride 109 H Carbon Dioxide 22.3 Anion Gap 10 BUN 11 Creatinine 0.49 L Estimated GFR Greater than 89 Random Glucose 79 Uric Acid 4.1 Calcium 8.1 L Total Bilirubin 0.1 L AST 12 L ALT 9 L Alkaline Phosphatase 107 Total Protein 6.4 Albumin 2.2 L Urine Color Urine Clarity Urine pH Ur Specific [place] Urine Protein Urine Glucose (UA) Urine Ketones Urine Occult Blood Urine Nitrate Urine Bilirubin Urine Urobilinogen Ur Leukocyte Esterase Urine RBC Urine WBC Ur Squamous Epith Cells Urine Bacteria Hyaline Casts Urine Mucus Micro UA Comment Ur Microscopic Review Urine Culture Comments Ur Random Creatinine U Random Total Protein Protein/Creatinin Ratio Physical Exam: GENERAL: Well-nourished, well-developed patient. CARDIOVASCULAR: Regular rate and rhythm without murmurs, gallops, or rubs. RESPIRATORY: Breath sounds equal bilaterally. No accessory muscle use. ABDOMEN/GI: Gravid abdomen soft, non-tender. GENITOURINARY: Uterine Contractions: none FHT's: Category: 1 Baseline: 150 Reactive:yes Variability: mod Decels: none EXTREMITIES: No cyanosis or edema, non-tender, without signs of DVT. +2 PD pulses BL Assessment and Plan - Diagnosis (1) 26 weeks gestation of Code(s): Z3A.26 - 26 weeks gestation of Status: Acute (2) Headache Code(s): R51 - Headache Status: Acute (3) Cervical incompetence during Code(s): O34.30 - Maternal care for cervical incompetence, unspecified trimester Status: Acute (4) UTI (urinary tract infection) during Code(s): O23.40 - Unspecified infection of urinary tract in , unspecified trimester Status: Acute - Plan Patient is 22-year-old white female at 26/4 weeks who presented overnight to OB triage with c/o headaches and dizziness and was found to have elevated BP at 140-150s/80-90s at that time. She was admitted for observation and PIH labs. This am BP are WNL, however pt is still c/o of HUITRON and vision changes. 1. IUP at 26/4 wks gestation -oral hydration -routine OB care - monitoring cat 1 -No contractions noted on monitor - complicated by cerclage placement at 18wks, pt to continue with bedrest. - Normal OB u/s done 03/12/18. wt estimated to be within 14 percentile ( 833g) and normal cervical length at 39mm 2. Headache -tylenol PRN -BP have normalized this am -continue to monitor vital signs and sxs severity (pt with c/o of HUITRON and blurry vision) -p/c ratio of 0.24, LFT WNL, H/H 10.7/30.2 -pt undergoing 24 hr urine collection Of note: pt has h/o of migraines but not HTN 3. UTI - c/w nitrofurantoin BID DW Dr. Ferrera Discharge Planning: continue observation and reassess pt after 24 hr urine collection (2) Headache Qualifiers: Headache type: tension-type Intractability: not intractable
[2018-03-13] MEDS: Butalbital/APAP/Caff 50/325/40 MG Tablet PO PRN (15:36)
[2018-03-14 01:08] LABS: Creatinine 24 Hour,Urine 1.16 gm/24hr (0.63-2.50)
[2018-03-14] MEDS: Acetaminophen 325 MG Tablet PO PRN (02:31)
[2018-03-14] MEDS: Butalbital/APAP/Caff 50/325/40 MG Tablet PO PRN (05:56)
--- NOTE | 2018-03-14 08:40 | P.OBANTE ---
Objective Vital Signs and I&O: Vital Signs 03/13/18 12:25 03/13/18 15:31 03/13/18 16:00 Temperature 98.7 F 98.4 F Pulse Rate 81 82 Respiratory Rate 17 16 Blood Pressure 133/75 144/93 H 03/13/18 16:07 03/13/18 17:08 03/13/18 18:00 Temperature Pulse Rate 88 87 88 Respiratory Rate Blood Pressure 135/83 145/83 H 111/55 L 03/13/18 19:00 03/13/18 19:25 03/13/18 22:31 Temperature 99.0 F Pulse Rate 87 88 Respiratory Rate 18 Blood Pressure 128/73 134/84 03/13/18 23:25 03/14/18 00:17 03/14/18 02:25 Temperature 98.6 F Pulse Rate 77 79 Respiratory Rate 18 18 Blood Pressure 149/92 H 123/75 03/14/18 03:25 03/14/18 05:08 03/14/18 06:25 Temperature Pulse Rate 60 Respiratory Rate 18 2 L 18 Blood Pressure 123/74 Lab and Micro Results: Laboratory Results - last 24 hr 03/14/18 00:00 Ur 24 Hour Volume 900 Ur Creatinine 24 Hour 1.16 Ur Total Protein 24 Hr 261 H Physical Exam: GENERAL: Well-nourished, well-developed patient. CARDIOVASCULAR: Regular rate and rhythm without murmurs, gallops, or rubs. RESPIRATORY: Breath sounds equal bilaterally. No accessory muscle use. ABDOMEN/GI: Abdomen soft, non-tender. Fundus: [-] GENITOURINARY: External Genitalia: cervical exam not performed Dilatation: [-] Effacement: [-] Station: [-] Presentation: [-] Membranes: [-] Uterine Contractions: [-] FHT's: 130s, no decels EXTREMITIES: No cyanosis or edema, non-tender, without signs of DVT. The exam, history, and the medical decision-making described in the above note were completed with the assistance of the resident physician. I reviewed and agree with the findings presented. I attest that I had a [id number] encounter with the patient on the same day, and personally performed and documented my assessment and findings in the medical record. Assessment and Plan - Diagnosis (1) 26 weeks gestation of Code(s): Z3A.26 - 26 weeks gestation of Status: Acute (2) Headache Code(s): R51 - Headache Status: Acute (3) Cervical incompetence during Code(s): O34.30 - Maternal care for cervical incompetence, unspecified trimester Status: Acute (4) UTI (urinary tract infection) during Code(s): O23.40 - Unspecified infection of urinary tract in , unspecified trimester Status: Acute - Plan Patient is 22-year-old white female at 26/4 weeks who presented overnight to OB triage with c/o headaches and dizziness and was found to have elevated BP at 140-150s/80-90s at that time. She was admitted for observation and PIH labs. This am BP are WNL, however pt is still c/o of intermittent left sided HUITRON and blurred vision. Pain is relieved with Fioricet. 1. IUP at 26/4 wks gestation -oral hydration -routine OB care - monitoring cat 1 -No contractions noted on monitor - complicated by cerclage placement at 18wks, pt to continue with bedrest. - Normal OB u/s done 03/12/18. wt estimated to be within 14 percentile ( 833g) and normal cervical length at 39mm 2. Headache -tylenol PRN -BP have normalized this am -continue to monitor vital signs and sxs severity (pt with c/o of HUITRON and blurry vision) -p/c ratio of 0.26, LFT WNL, H/H 10.7/30.2 -24 hr urine 261 mg Of note: pt has h/o of migraines but not HTN 3. UTI - c/w nitrofurantoin BID DW Dr. Rod Discharge Planning: Will discharge with instructions to f/u with her OB- will call today for an appt D/w pt when to return (2) Headache Qualifiers: Headache type: tension-type Intractability: not intractable
[2018-03-14 08:46] VITALS: BP 135/85; PULSE 69; RESP 17; TEMP 98.7
[2018-03-14] MEDS: Nitrofurantoin Monohydrate-Macrocrystal 100 MG Capsule PO SCH (08:50)
[2018-03-14] MEDS: Prenatal Vit/Ca/Iron/Folic Acid Tablet PO SCH (08:50)
== END 2018-03-14 10:10 | disposition home or self-care (01) ==
LOC: HOBED 21:52 → H2E 21:52
PROVIDERS: ADMIT Obstetrics & Gynecology Maternal & Fetal Medicine; ATTEND Obstetrics & Gynecology Maternal & Fetal Medicine

== ENCOUNTER 2018-03-22 01:38 | Inpatient (IN) ==
[2018-03-22] MEDS ORDERED: Labetalol HCl Inj 100 MG/20 ML Vial IV.PUSH PRN (02:51)
[2018-03-22] MEDS ORDERED: Docusate Sodium 100 MG Capsule PO PRN (02:51)
[2018-03-22] MEDS ORDERED: Acetaminophen 325 MG Tablet PO PRN (02:51)
[2018-03-22] MEDS ORDERED: Zolpidem Tartrate 5 MG Tablet PO PRN (02:51)
--- NOTE | 2018-03-22 03:15 | P.HPOB ---
History of Present Illness Primary Care Physician: NOT REQUIRED Dr. Shaheen Silva Chief Complaint: Leaking fluid, increase pressure in the vagina History of Present Illness: Patient is 22-year-old black female now 27 weeks and 6 days with a EDC of 06/15/2018 who complains of increase leakage of fluid and passage of mucous plug and increased pelvic pressure. Patient's amnio sure tonight is negative; she also complains of vaginal discharge and is being treated for a yeast infection with Terazol cream by Dr. Shaheen Silva she is having vaginal itching as well. Patient was admitted a week ago for pelvic pressure and found to have a UTI at that time was given antibiotics while she was here and may have had a resulting yeast infection from the antibiotics. She was admitted a week ago because she had hypertension in which is a new finding, she is no history of hypertension prior to that all her visits from 14 weeks on with her normal blood pressures when she was seen a week ago blood pressures were 140s over 90s, tonight her blood pressures of 150/90 to 160/100. A week ago she went and hospitalized she had a 261 mg of protein in 24 hours in her urine. While in the hospital her blood pressures normalized and her serum lab was within normal limits and she was sent home to bed rest, she is not taking a medication for blood pressure. Patient also has cervical cerclage in place due to her history of cervical incompetence with loss of 2 prior pregnancies at 16 and 19 weeks Weeks Gestation:: 27 Para: 0 : 3 Total # of Miscarriage(s): 2 (2 prior losses and second trimester 16 and 19 weeks respectively) Review of Systems All other systems reviewed negative except as stated in HPI PMFSH - History History Provided By: Patient, Family Member - Medical History Medical History: Medical History (Last Updated 01/22/18 @ 20:04 by Mariia Garner) Patient denies medical problems (Acute) Cervical cerclage suture present Miscarriage - Surgical History Surgical History: Surgical History (Last Reviewed 01/22/18 @ 19:55 by Connor Hicks RN) No history of previous surgery (Acute) - Tobacco History Second Hand Smoke Exposure: No Smoking Status: Never smoker - Alcohol History How Often Do You Have a Drink Containing Alcohol: Never - Substance Use History Substance History: No History of Abuse - Travel History History of Recent Travel: No Recent Travel in the [place] Within the Last 8 Weeks: No Recent Travel Out of the Country Within the Last 8 Weeks: No Medications and Allergies Active Medications: Active Medications Acetaminophen (Tylenol) 650 mg PO Q4H PRN PRN Reason: PAIN SCALE 1 TO 2 Calcium Gluconate (Calcium Gluconate Inj) 1 gm IV.PUSH PRN PRN PRN Reason: Magnesium toxicity Docusate Sodium (Colace) 100 mg PO BID PRN PRN Reason: CONSTIPATION Lactated Ringer's (Lr 1000 Ml Inj) 1,000 mls @ 75 mls/hr IV.CONT .[id number] THANIA Labetalol HCl (Trandate Inj) 20 mg IV.PUSH NOW PRN PRN Reason: SEE LABEL COMMENTS Ondansetron HCl (Zofran Inj) 4 mg IV.PUSH Q6H PRN PRN Reason: NAUSEA OR VOMITING Vit/Calcium/Iron/Folic Ac (Stuartnatal Plus 3) 1 tab PO DAILY THANIA Sodium Chloride (Ns Flush) 2 ml IV.FLUSH BID THANIA Sodium Chloride (Ns Flush) 2 ml IV.FLUSH PRN PRN PRN Reason: FLUSH AFTER USING IV ACCESS Zolpidem Tartrate (Ambien) 5 mg PO HS PRN PRN Reason: INSOMNIA Allergies Allergy/AdvReac Type Severity Reaction Status Date / Time Penicillins Allergy Severe Itching Verified 03/12/18 23:17 Home Medications Medication Instructions Recorded Confirmed Type PNV,calcium 51-pbxa-jxoxk acid 1 tab PO DAILY 11/22/17 03/22/18 History [PrePlus] Exam Vital signs: Vital Signs 03/22/18 02:05 03/22/18 02:07 03/22/18 02:09 Pulse Rate 89 86 93 H Respiratory Rate 18 Blood Pressure 153/100 H 164/104 H 03/22/18 02:10 Pulse Rate 94 H Respiratory Rate Blood Pressure Narrative: GENERAL: Well-nourished, well-developed patient. SKIN: Warm and dry. HEAD: Normocephalic and atraumatic. EYES: No scleral icterus. No injection or drainage. ENT: No nasal drainage noted. Mucous membranes pink. Airway patent. NECK: Supple, trachea midline. No JVD. CARDIOVASCULAR: Regular rate and rhythm without murmurs, gallops, or rubs. RESPIRATORY: Breath sounds equal bilaterally. No accessory muscle use. BREASTS: Bilateral exam showed no masses , no retractions, no nipple discharge. ABDOMEN/GI: Abdomen soft, non-tender, bowel sounds present, no rebound, no guarding Gravid to [27-] weeks size Fundal Height: [25-] GENITOURINARY: External Genitalia: intact and normal in appearance Speculum exam exam done which shows a vagina full of yeast cream and yeast discharge she last put the yeast cream in night before last Cervix: [Posterior with palpable cerclage stitch in place-] Dilatation: [FT-] Effacement: [thick, ultrasound a week ago showed 39 mm length-] Station: [-3] Presentation: [vtx-] Membranes: [intact ] Uterine Contractions: [none-] FHT's: Category: [1-] Baseline: [144-] Reactive: [Yes for 26 weeks-] Variability: [mod-] Decels: [-Occasional variable seen] EXTREMITIES: No cyanosis or edema. BACK: Nontender without obvious deformity. No CVA tenderness. NEUROLOGICAL: Awake and alert. Motor and sensory grossly within normal limits. Five out of 5 muscle strength in all muscle groups. Normal speech. Caprini VTE Risk Assessment Caprini VTE Risk Assessment: No/Low Risk (score <= 1) Caprini Risk Assessment Model: Point Value = 1 Point Value = 2 Point Value = 3 Point Value = 5 Age 41-60 Minor surgery BMI > 25 kg/m2 Swollen legs Varicose veins or History of unexplained or recurrent spontaneous Oral contraceptives or hormone replacement Sepsis (< 1 month) Serious lung disease, including pneumonia (< 1 month) Abnormal pulmonary function Acute myocardial infarction Congestive heart failure (< 1 month) History of inflammatory bowel disease Medical patient at bed rest Age 61-74 Arthroscopic surgery Major open surgery (> 45 min) Laparoscopic surgery (> 45 min) Malignancy Confined to bed (> 72 hours) Immobilizing plaster cast Central venous access Age >= 75 History of VTE Family history of VTE Factor V Leiden Prothrombin [id number] Lupus anticoagulant Anticardiolipin antibodies Elevated serum homocysteine Heparin-induced thrombocytopenia Other congenital or acquired thrombophilia Stroke (< 1 month) Elective arthroplasty Hip, pelvis, or leg fracture Acute spinal cord injury (< 1 month) Prophylaxis Regimen: Total Risk Factor Score Risk Level Prophylaxis Regimen 0-1 Low Early ambulation 2 Moderate Order ONE of the following: *Sequential Compression Device (SCD) *Heparin 5000 units SQ BID 3-4 Higher Order ONE of the following medications: *Heparin 5000 units SQ TID *Enoxaparin/Lovenox 40 mg SQ daily (WT < 150 kg, CrCl > 30 mL/min) *Enoxaparin/Lovenox 30 mg SQ daily (WT < 150 kg, CrCl > 10-29 mL/min) *Enoxaparin/Lovenox 30 mg SQ BID (WT < 150 kg, CrCl > 30 mL/min) AND/OR *Sequential Compression Device (SCD) 5 or more Highest Order ONE of the following medications: *Heparin 5000 units SQ TID (Preferred with Epidurals) *Enoxaparin/Lovenox 40 mg SQ daily (WT < 150 kg, CrCl > 30 mL/min) *Enoxaparin/Lovenox 30 mg SQ daily (WT < 150 kg, CrCl > 10-29 mL/min) *Enoxaparin/Lovenox 30 mg SQ BID (WT < 150 kg, CrCl > 30 mL/min) AND *Sequential Compression Device (SCD) Assessment and Plan - Diagnosis (1) Hypertension affecting in second trimester Code(s): O16.2 - Unspecified maternal hypertension, second trimester Status: Acute (2) Cervical incompetence during Code(s): O34.30 - Maternal care for cervical incompetence, unspecified trimester Status: Acute (3) No leakage of amniotic fluid into vagina Code(s): Z03.71 - Encounter for suspected problem with amniotic cavity and membrane ruled out Status: Acute (4) Vaginal yeast infection Code(s): B37.3 - Candidiasis of vulva and vagina Status: Acute - Plan This 27-28-week intrauterine is obviously high risk with history of cervical incompetence and second trimester losses of prior pregnancies now with cerclage in place and dealing with vaginal infections with the monilial infection present in the vagina full of yeast cream and yeast infection. Hypertension in without severe features--blood pressures however now a higher this week than last week with the blood pressure [id number] and this condition is what requires inpatient hospitalization. Repeat 24-hour urine needs collection to see if it is increased over prior 261 mg value IUGR-baby is lacking at least a week and growth according to ultrasound on 03/12 , would repeat ultrasound now a week later to see if there is been interval growth Plan for this patient will be to remain an inpatient, bedrest for high blood pressure, IV labetalol and/or hydralazine as needed per protocol
[2018-03-22] MEDS: hydrALAZINE HCl Inj 20 MG/ML Vial IV.PUSH PRN ×3 (03:34→11:08)
[2018-03-22 03:53] LABS: Hematocrit 36.2 % (35.0-46.0); Hemoglobin 11.8 gm/dL (11.6-15.3); Mean Corpuscular HGB Conc 32.6 % (32.0-36.0); Mean Corpuscular Hemoglobin 28.2 pg (27.0-34.0); Mean Corpuscular Volume 86.5 fL (80.0-100.0); Mean Platelet Volume 9.6 fL (7.0-11.0); Platelet Count 248 th/mm3 (150-450); Red Blood Count 4.19 mil/mm3 (4.00-5.30); Red Cell Distribution Width 15.3 % (11.6-17.2); White Blood Count 9.8 th/mm3 (4.0-11.0)
[2018-03-22 04:21] LABS: Albumin 2.1 g/dL (3.4-5.0); Anion Gap 10 meq/L (5-15); Aspartate Aminotransferase 21 U/L (15-37); Blood Urea Nitrogen 14 mg/dL (7-18); Calcium 8.4 mg/dL (8.5-10.1); Carbon Dioxide 21.8 meq/L (21.0-32.0); Chloride 107 meq/L (98-107); Glomerular Filtration Rate Greater Than 89 mL/min (>89); Glucose,Random 83 mg/dL (74-106); Sodium 139 meq/L (136-145); Uric Acid 4.7 mg/dl (2.6-6.0)
[2018-03-22 04:22] LABS: Alanine Aminotransferase 11 U/L (10-53)
[2018-03-22 04:23] LABS: Alkaline Phosphatase 138 U/L (45-117); Total Protein 6.2 g/dL (6.4-8.2)
[2018-03-22] MEDS ORDERED: Labetalol HCl Inj 100 MG/20 ML Vial IV.PUSH SCH (05:00)
[2018-03-22] MEDS ORDERED: Betamethasone Sod Phos/Acetate Inj 30 MG/5 ML Vial IM ONE (06:22)
[2018-03-22] MEDS ORDERED: Fluconazole 100 MG Tablet PO ONE (07:00)
[2018-03-22 07:24] VITALS: TEMP 98.2
[2018-03-22] MEDS ORDERED: Mag Sulf/Water 4 gm/100 ml 100 ML IV.SIG ONE (07:37)
[2018-03-22] MEDS ORDERED: hydrALAZINE HCl Inj 20 MG/ML Vial IV.PUSH PRN (07:59)
[2018-03-22] MEDS ORDERED: Betamethasone Sod Phos/Acetate Inj 30 MG/5 ML Vial IM SCH (08:00)
[2018-03-22] MEDS ORDERED: Mag Sulf/Water 40 gm/1000 ml 40 GM/1,000 ML BAG IV.CONT SCH (08:00)
[2018-03-22 08:07] LABS: Bacteria,Urine Rare /hpf; Bilirubin,Urine Negative (Negative); Clarity,Urine Hazy (Clear); Color,Urine Yellow (Yellw/Straw); Glucose,Urine (UA) Negative (Negative); Hyaline Casts,Urine 4 /lpf (0-3); Leukocyte Esterase,Urine Negative (Negative); Mucus,Urine Few /lpf (Occasional); Nitrite,Urine Negative (Negative); Specific Gravity,Urine 1.023 (1.002-1.035); Squamous Epithelial Cell,Urine <1 /hpf (0-5)
[2018-03-22] MEDS ORDERED: Prenatal Vit/Ca/Iron/Folic Acid Tablet PO SCH (09:00)
[2018-03-22 09:21] LABS: Protein/Creatinine Ratio,Urine 8.53 (0.00-0.14); Total Protein,Urine Random 1040.5 mg/dL (0-11.8)
--- NOTE | 2018-03-22 09:28 | P.OBANTE ---
Subjective Interval History: Patient seen and examined this morning. She reports she feels comfortable. Denies any chest pain, shortness of breath, dizziness, vision issues, right upper quadrant abdominal pain, lower extremity swelling, contractions, loss of fluid or vaginal bleeding. Endorses movement. Patient vomited this morning x1. Antepartum ROS: Reports: movement normal Denies: Loss of fluid, Vaginal bleeding, Contractions Objective Vital Signs and I&O: Vital Signs 03/22/18 02:05 03/22/18 02:07 03/22/18 02:09 Temperature Pulse Rate 89 86 93 H Respiratory Rate 18 Blood Pressure 153/100 H 164/104 H 03/22/18 02:10 03/22/18 03:00 03/22/18 03:10 Temperature 98.1 F Pulse Rate 94 H 81 79 Respiratory Rate Blood Pressure 162/99 H 03/22/18 03:15 03/22/18 03:28 03/22/18 03:45 Temperature Pulse Rate 79 91 H Respiratory Rate 18 Blood Pressure 171/100 H 161/98 H 03/22/18 04:21 03/22/18 05:34 03/22/18 06:33 Temperature Pulse Rate 88 86 90 Respiratory Rate Blood Pressure 168/94 H 151/91 H 03/22/18 07:00 03/22/18 07:23 03/22/18 07:27 Temperature 98.2 F Pulse Rate 89 97 H Respiratory Rate Blood Pressure 151/88 H 158/100 H 03/22/18 08:00 03/22/18 08:11 03/22/18 08:14 Temperature Pulse Rate 94 H Respiratory Rate 18 Blood Pressure 179/109 H 163/104 H 03/22/18 08:20 03/22/18 08:25 03/22/18 08:30 Temperature Pulse Rate 94 H 101 H 101 H Respiratory Rate Blood Pressure 145/88 H 143/79 H 139/79 03/22/18 08:35 03/22/18 08:45 Temperature Pulse Rate 102 H 95 H Respiratory Rate Blood Pressure 142/82 H Intake & Output 03/21/18 03/22/18 03/22/18 18:59 06:59 18:59 Weight 150 kg Lab and Micro Results: Laboratory Results - last 24 hr 03/22/18 03/22/18 03/22/18 02:10 03:15 03:15 WBC 9.8 RBC 4.19 Hgb 11.8 Hct 36.2 MCV 86.5 MCH 28.2 MCHC 32.6 RDW 15.3 Plt Count 248 MPV 9.6 Sodium 139 Potassium 4.0 Chloride 107 Carbon Dioxide 21.8 Anion Gap 10 BUN 14 Creatinine 0.57 Estimated GFR Greater than 89 Random Glucose 83 Uric Acid 4.7 Calcium 8.4 L Total Bilirubin 0.1 L AST 21 ALT 11 Alkaline Phosphatase 138 H Total Protein 6.2 L Albumin 2.1 L Urine Color Urine Clarity Urine pH Ur Specific [place] Urine Protein Urine Glucose (UA) Urine Ketones Urine Occult Blood Urine Nitrate Urine Bilirubin Urine Urobilinogen Ur Leukocyte Esterase Urine RBC Urine WBC Ur Squamous Epith Cells Urine Bacteria Hyaline Casts Urine Mucus Micro UA Comment Ur Microscopic Review Urine Culture Comments POC Urine Opiates Negative POC Urine Buprenorphine Negative POC Urine Oxycodone Negative POC Urine Methadone Negative POC Urine Barbiturates Positive POC Urine PCP Negative POC Ur Amphetamines Negative POC Ur Methamphetamine Negative POC Urine MDMA Negative POC Ur Benzodiazepine Negative POC Urine Cocaine Negative POC Ur Marijuana (THC) Negative Blood Type 03/22/18 03/22/18 03:15 03:15 WBC RBC Hgb Hct MCV MCH MCHC RDW Plt Count MPV Sodium Potassium Chloride Carbon Dioxide Anion Gap BUN Creatinine Estimated GFR Random Glucose Uric Acid Calcium Total Bilirubin AST ALT Alkaline Phosphatase Total Protein Albumin Urine Color Yellow Urine Clarity Hazy H Urine pH 6.0 Ur Specific [place] 1.023 Urine Protein 500 or greater Urine Glucose (UA) Negative Urine Ketones Negative Urine Occult Blood Negative Urine Nitrate Negative Urine Bilirubin Negative Urine Urobilinogen Less than 2 Ur Leukocyte Esterase Negative Urine RBC 3 Urine WBC 3 Ur Squamous Epith Cells <1 Urine Bacteria Rare H Hyaline Casts 4 Urine Mucus Few H Micro UA Comment Cath-culture ind Ur Microscopic Review Not Reportable Urine Culture Comments Cath-cult indicated POC Urine Opiates POC Urine Buprenorphine POC Urine Oxycodone POC Urine Methadone POC Urine Barbiturates POC Urine PCP POC Ur Amphetamines POC Ur Methamphetamine POC Urine MDMA POC Ur Benzodiazepine POC Urine Cocaine POC Ur Marijuana (THC) Blood Type A Positive Physical Exam: GENERAL: Well-nourished, well-developed patient. CARDIOVASCULAR: Regular rate and rhythm without murmurs, gallops, or rubs. RESPIRATORY: Breath sounds equal bilaterally. No accessory muscle use. ABDOMEN/GI: Gravid Abdomen soft, non-tender. GENITOURINARY: Uterine Contractions: None FHT's: Category: 1 Baseline: 135 Reactive: [-] Variability: minimal due to mag sulf treatment Decels: None EXTREMITIES: No cyanosis or edema, non-tender, without signs of DVT. Hyper reflexive patellar reflexes, +34. No clonus. Assessment and Plan - Diagnosis (1) 27 weeks gestation of Code(s): Z3A.27 - 27 weeks gestation of Status: Acute Plan: Patient is a 22-year-old female at 27/6 weeks gestation admitted for elevated blood pressures and management of preeclampsia. complicated by elevated blood pressures, cerclage placement and SGA. Blood pressure this morning 179/109. Patient is asymptomatic otherwise. Started on magnesium sulfate and hypertension protocol. Status post 5 mg IV of Apresoline. If BP not able to be controlled plan to consider hospital transfer to [facility]. s/p steroids x1 for lung maturity 03/22/18. Pt will receive 2nd dose of steroid today. continue to monitor vital signs OB u/s 03/22/18: BPP 8/8, estimated weight of 823 g which is a decrease of 10 g compared to prior OB ultrasound done on 03/12/18, amniotic fluid index 17.9. NICU consulted, appreciate recommendations monitoring reassuring LFTs, CBC, uric acid WNL Alk phos: 138 f/u p/c ratio update: p/c ratio elevated at 8.53 s/p apresoline 5 mg IV x2. most current BP 134/78 abx for GBS coverage Plan to coordinate transfer of pt to [facility] due to development of severe pre-eclampsia. Dr. Ferrera spoke to MFM at [facility] , and pt has been accepted for transfer. dw Dr. Ferrera (2) Pre-eclampsia Code(s): O14.90 - Unspecified pre-eclampsia, unspecified trimester Status: Acute - Plan This 27-28-week intrauterine is obviously high risk with history of cervical incompetence and second trimester losses of prior pregnancies now with cerclage in place and dealing with vaginal infections with the monilial infection present in the vagina full of yeast cream and yeast infection. Hypertension in without severe features--blood pressures however now a higher this week than last week with the blood pressure [id number] and this condition is what requires inpatient hospitalization. Repeat 24-hour urine needs collection to see if it is increased over prior 261 mg value IUGR-baby is lacking at least a week and growth according to ultrasound on 03/12 , would repeat ultrasound now a week later to see if there is been interval growth Plan for this patient will be to remain an inpatient, bedrest for high blood pressure, IV labetalol and/or hydralazine as needed per protocol
[2018-03-22] MEDS ORDERED: Vancomycin Inj 1,000 MG in Sodium Chlor 0.9% Inj 250 ML IV.SIG ONE (10:30)
[2018-03-22 11:17] VITALS: RESP 20
[2018-03-22 13:05] VITALS: BP 137/96; PULSE 109
== END 2018-03-22 13:14 | disposition short-term general hospital (02) | DRG 831 ==
LOC: HOBED 01:38 → H2E 02:54
PROVIDERS: ADMIT Obstetrics & Gynecology Maternal & Fetal Medicine; ATTEND Obstetrics & Gynecology Maternal & Fetal Medicine
CPT/HCPCS: 59025; 76815; 80053; 80307; 81001; 82570; 83518; 84112; 84155; 84157; 84550; 85027; 86900; 86901; 87086; 99285; G0481; G0483; J0360; J0702; J3370; J3475; J7050; J7120